=== PATIENT | female | born 1960 | race Two or more races ===

== ENCOUNTER 2022-11-14 11:28 | Inpatient (IN) | payer MEDICAID, OTHER ==
[~2022-11-14] VITALS: Ht 152.4 cm; Wt 100.6 kg
[2022-11-14 12:12] LABS: Basophils # (auto) 0 10 ^3/uL (0-0.2); Basophils % (auto) 0.2 % (0.0-2.0); Eosinophils # (auto) 0 10 ^3/uL (0-0.8); Eosinophils % (auto) 0.3 % (0.0-7.0); Hematocrit 43.5 % (36.0-46.0); Hemoglobin 14.4 g/dL (12.2-16.2); Lymphocytes # (auto) 1.3 10 ^3/uL (0.4-5.4); Lymphocytes % (auto) 15.9 % (10.0-50.0); Mean Corpuscular Hemoglobin 27.6 pg (28.0-32.0); Mean Corpuscular Volume 83.7 fL (80.0-100.0); Monocytes # (auto) 0.3 10 ^3/uL (0-1.3); Monocytes % (auto) 3.2 % (0.0-12.0); Neutrophils # (auto) 6.4 10 ^3/uL (1.6-8.6); Neutrophils % (auto) 80.4 % (37.0-80.0); Nucleated Red Blood Cells % 0.1 %; Red Blood Cells 5.19 10^6/uL (4.0-5.20); Red Cell Distribution Width 14.8 % (11.8-14.3); White Blood Cell 7.9 10^3/uL (4.4-10.8)
[2022-11-14 12:29] LABS: Albumin 3.6 g/dL (3.4-5.0); Calcium 8.3 mg/dL (8.5-10.1); Potassium 3.6 mmol/L (3.5-5.1)
[2022-11-14 12:32] LABS: BUN/Creatinine Ratio 19.6; Bilirubin, Total 0.4 mg/dL (0.2-1.0); Total Protein 7.6 g/dL (6.4-8.2)
[2022-11-14] MEDS ORDERED: DEXTROSE (50%) 50ML SYRG IV PRN (16:45)
[2022-11-14] MEDS ORDERED: ONDANSETRON HCL 4 MG/2 ML VIAL IV PRN (16:45)
[2022-11-14] MEDS ORDERED: REMDESIVIR PER PHARMACY 0 ML IV SCH (16:45)
[2022-11-14] MEDS ORDERED: NITROGLYCERIN 0.4 MG SL TAB SL PRN (16:45)
[2022-11-14] MEDS ORDERED: HYDROcodone-ACET 5/325MG TAB PO PRN (16:45)
[2022-11-14] MEDS ORDERED: ACETAMINOPHEN 500 MG TAB PO PRN (16:45)
[2022-11-14] MEDS ORDERED: MORPHINE SULFATE INJ 2 MG/ml SYRG IV PRN ×2 (16:45)
[2022-11-14] MEDS: ACCU-CHEK COMFORT CURVE STRIP VI SCH ×2 (18:20→23:30)
[2022-11-14] MEDS: DexAMETHasone SOD PHOS 10MG/1ML VIAL INJ IV SCH (18:27)
[2022-11-14] MEDS: InsuLIN REG 1unit/0.01ml Soln (100units/ml) SC SCH ×2 (18:31→23:32)
[2022-11-14] MEDS ORDERED: REMDESIVIR 200 MG in NS 210ml LOADING DOSE ADULT IV ONE (20:00)
[2022-11-14] MEDS: ASCORBIC ACID 500 MG TAB PO SCH (23:21)
[2022-11-15] VITALS (7 sets, daily range): BP systolic 104–154; BP diastolic 48–60
[2022-11-15] MEDS ORDERED: GLIP5TAB12 PO (01:30)
[2022-11-15] MEDS ORDERED: METF-370 PO (01:30)
[2022-11-15] MEDS ORDERED: ERTU5TAB PO (01:30)
[2022-11-15 05:33] LABS: Basophils # (auto) 0 10 ^3/uL (0-0.2); Basophils % (auto) 0.2 % (0.0-2.0); Eosinophils # (auto) 0 10 ^3/uL (0-0.8); Hematocrit 42.3 % (36.0-46.0); Hemoglobin 13.7 g/dL (12.2-16.2); Lymphocytes # (auto) 1.1 10 ^3/uL (0.4-5.4); Lymphocytes % (auto) 18.4 % (10.0-50.0); Mean Corpuscular Hemoglobin 27.2 pg (28.0-32.0); Mean Corpuscular Hgb Conc. 32.5 g/dL (32.0-36.0); Mean Corpuscular Volume 83.8 fL (80.0-100.0); Monocytes # (auto) 0.2 10 ^3/uL (0-1.3); Monocytes % (auto) 4.2 % (0.0-12.0); Neutrophils # (auto) 4.5 10 ^3/uL (1.6-8.6); Neutrophils % (auto) 77.2 % (37.0-80.0); Nucleated Red Blood Cells % 0.1 %; Red Blood Cells 5.04 10^6/uL (4.0-5.20); Red Cell Distribution Width 15.2 % (11.8-14.3); White Blood Cell 5.8 10^3/uL (4.4-10.8)
[2022-11-15 05:37] LABS: Albumin 3.3 g/dL (3.4-5.0); Calcium 8.1 mg/dL (8.5-10.1)
[2022-11-15 05:40] LABS: BUN/Creatinine Ratio 26.1; Bilirubin, Total 0.3 mg/dL (0.2-1.0); Total Protein 6.5 g/dL (6.4-8.2)
[2022-11-15] MEDS: ACCU-CHEK COMFORT CURVE STRIP VI SCH ×4 (06:46→22:30)
[2022-11-15] MEDS: InsuLIN REG 1unit/0.01ml Soln (100units/ml) SC SCH ×4 (06:48→22:32)
[2022-11-15] MEDS: PANTOPRAZOLE 40 MG TAB PO SCH (09:30)
[2022-11-15] MEDS: ASCORBIC ACID 500 MG TAB PO SCH ×2 (09:30→22:34)
[2022-11-15] MEDS: CHOLECALCIFEROL (VITD3) 2,000 UNIT CAP/TAB PO SCH (09:30)
[2022-11-15] MEDS: ZINC SULFATE 220mg CAP or TAB PO SCH (09:31)
[2022-11-15] MEDS: cefTRIAXone 1GM/50ML D5W 50 ML IV SCH (09:32)
[2022-11-15] MEDS: AZITHROMYCIN 500MG/ 250ML 250 ML IV SCH (09:33)
[2022-11-15] MEDS: DexAMETHasone SOD PHOS 10MG/1ML VIAL INJ IV SCH (09:38)
[2022-11-15] MEDS: REMDESIVIR 100mg 100 MG in SODIUM CHL 0.9% 230 ML IV SCH (15:09)
[2022-11-15] MEDS: ALBUTEROL SULF HFA 90MCG INH 200DOSE IN SCH ×2 (15:25→22:29)
[2022-11-15] MEDS: ENOXAPARIN SOD 40 MG/0.4 ML SYRINGE SC SCH (22:34)
[2022-11-15] MEDS ORDERED: ALBUTEROL SULF HFA 90MCG INH 200DOSE IN PRN (22:45)
[2022-11-16 05:00] VITALS: BP 116/62
[2022-11-16] MEDS: ACCU-CHEK COMFORT CURVE STRIP VI SCH ×4 (06:12→22:06)
[2022-11-16] MEDS: InsuLIN REG 1unit/0.01ml Soln (100units/ml) SC SCH ×4 (06:16→22:00)
[2022-11-16 07:34] LABS: Calcium 8.6 mg/dL (8.5-10.1); Potassium 4.9 mmol/L (3.5-5.1)
[2022-11-16 07:37] LABS: Albumin 2.9 g/dL (3.4-5.0); BUN/Creatinine Ratio 35.2
[2022-11-16 07:40] LABS: Bilirubin, Total 0.5 mg/dL (0.2-1.0); Total Protein 6.5 g/dL (6.4-8.2)
[2022-11-16] MEDS: cefTRIAXone 1GM/50ML D5W 50 ML IV SCH (08:45)
[2022-11-16] MEDS: DexAMETHasone SOD PHOS 10MG/1ML VIAL INJ IV SCH (08:45)
[2022-11-16] MEDS: PANTOPRAZOLE 40 MG TAB PO SCH (08:45)
[2022-11-16] MEDS: ASCORBIC ACID 500 MG TAB PO SCH ×2 (08:45→22:05)
[2022-11-16] MEDS: ZINC SULFATE 220mg CAP or TAB PO SCH (08:45)
[2022-11-16] MEDS: ENOXAPARIN SOD 40 MG/0.4 ML SYRINGE SC SCH ×2 (08:45→22:06)
[2022-11-16] MEDS: CHOLECALCIFEROL (VITD3) 2,000 UNIT CAP/TAB PO SCH (08:45)
[2022-11-16 09:00] VITALS: BP 109/51
[2022-11-16] MEDS: AZITHROMYCIN 500MG/ 250ML 250 ML IV SCH (09:39)
[2022-11-16 12:53] VITALS: BP 115/61
[2022-11-16] MEDS: REMDESIVIR 100mg 100 MG in SODIUM CHL 0.9% 230 ML IV SCH (15:54)
[2022-11-16 16:54] VITALS: BP 126/64
[2022-11-16 22:00] VITALS: BP 116/60
[2022-11-17 04:53] VITALS: BP 130/74
[2022-11-17 06:13] LABS: Potassium 3.6 mmol/L (3.5-5.1)
[2022-11-17 06:19] LABS: Bilirubin, Total 0.3 mg/dL (0.2-1.0); Calcium 8.4 mg/dL (8.5-10.1); Total Protein 6.5 g/dL (6.4-8.2)
[2022-11-17] MEDS: ACCU-CHEK COMFORT CURVE STRIP VI SCH ×4 (06:40→21:43)
[2022-11-17] MEDS: InsuLIN REG 1unit/0.01ml Soln (100units/ml) SC SCH ×4 (06:42→21:40)
[2022-11-17] MEDS: ENOXAPARIN SOD 40 MG/0.4 ML SYRINGE SC SCH ×2 (08:02→21:43)
[2022-11-17] MEDS: PANTOPRAZOLE 40 MG TAB PO SCH (08:02)
[2022-11-17] MEDS: cefTRIAXone 1GM/50ML D5W 50 ML IV SCH (08:02)
[2022-11-17] MEDS: ZINC SULFATE 220mg CAP or TAB PO SCH (08:02)
[2022-11-17] MEDS: ASCORBIC ACID 500 MG TAB PO SCH ×2 (08:02→21:42)
[2022-11-17] MEDS: DexAMETHasone SOD PHOS 10MG/1ML VIAL INJ IV SCH (08:02)
[2022-11-17] MEDS: CHOLECALCIFEROL (VITD3) 2,000 UNIT CAP/TAB PO SCH (08:02)
[2022-11-17 09:00] VITALS: BP 119/58
[2022-11-17] MEDS: AZITHROMYCIN 500MG/ 250ML 250 ML IV SCH (09:10)
[2022-11-17 12:59] VITALS: BP 133/64
[2022-11-17] MEDS: REMDESIVIR 100mg 100 MG in SODIUM CHL 0.9% 230 ML IV SCH (14:30)
[2022-11-17 17:09] VITALS: BP 107/66
[2022-11-17] MEDS: metFORMIN HYDROCHLORIDE 500 MG TAB PO SCH (18:00)
[2022-11-17 22:00] VITALS: BP 134/61
[2022-11-18 05:00] VITALS: BP 125/74
[2022-11-18 05:39] LABS: Albumin 3.2 g/dL (3.4-5.0); Calcium 8.5 mg/dL (8.5-10.1)
[2022-11-18 05:43] LABS: BUN/Creatinine Ratio 25.9; Bilirubin, Total 0.3 mg/dL (0.2-1.0); Total Protein 6.3 g/dL (6.4-8.2)
[2022-11-18] MEDS: ACCU-CHEK COMFORT CURVE STRIP VI SCH ×3 (06:38→18:45)
[2022-11-18] MEDS: InsuLIN REG 1unit/0.01ml Soln (100units/ml) SC SCH ×3 (06:40→18:43)
[2022-11-18] MEDS: PANTOPRAZOLE 40 MG TAB PO SCH (08:49)
[2022-11-18] MEDS: metFORMIN HYDROCHLORIDE 500 MG TAB PO SCH ×3 (08:49→18:45)
[2022-11-18] MEDS: ASCORBIC ACID 500 MG TAB PO SCH (08:50)
[2022-11-18] MEDS: CHOLECALCIFEROL (VITD3) 2,000 UNIT CAP/TAB PO SCH (08:50)
[2022-11-18] MEDS: ENOXAPARIN SOD 40 MG/0.4 ML SYRINGE SC SCH (08:50)
[2022-11-18] MEDS: ZINC SULFATE 220mg CAP or TAB PO SCH (08:50)
[2022-11-18] MEDS: cefTRIAXone 1GM/50ML D5W 50 ML IV SCH (08:51)
[2022-11-18 09:14] VITALS: BP 123/63
[2022-11-18] MEDS: AZITHROMYCIN 500MG/ 250ML 250 ML IV SCH (09:35)
[2022-11-18] MEDS ORDERED: DexAMETHasone 4 MG TAB PO SCH (10:00)
[2022-11-18 13:02] VITALS: BP 109/66
[2022-11-18] MEDS ORDERED: SITA50TA PO (15:29)
[2022-11-18] MEDS ORDERED: BENZ100C19 PO (15:29)
[2022-11-18] MEDS ORDERED: ALBU108A5 IN (15:29)
[2022-11-18] MEDS: REMDESIVIR 100mg 100 MG in SODIUM CHL 0.9% 230 ML IV SCH (15:53)
== END 2022-11-18 18:36 | disposition home or self-care (01) | DRG 137 ==
LOC: ER 11:28 → TELE 16:51 → TELE-EAST 20:38
PROVIDERS: ADMIT Nurse Practitioner Acute Care; ATTEND Hospitalist
PROC: XW033E5 Introduction of Remdesivir Anti-infective into Peripheral Vein, Percutaneous Approach, New Technology Group 5 (ICD-10-PCS; principal; 2022-11-14)
DX: U07.1 COVID-19 (principal); J96.01 Acute respiratory failure with hypoxia; J12.82 Pneumonia due to coronavirus disease 2019; E11.65 Type 2 diabetes mellitus with hyperglycemia; E66.01 Morbid (severe) obesity due to excess calories; I10 Essential (primary) hypertension; J45.909 Unspecified asthma, uncomplicated; Z68.41 Body mass index [BMI] 40.0-44.9, adult; Z90.710 Acquired absence of both cervix and uterus; Z83.3 Family history of diabetes mellitus; Z79.4 Long term (current) use of insulin
CPT/HCPCS: 36415; 36600; 71046; 71250; 80053; 82805; 82962; 83036; 85025; 85379; 86141; 87426; 87804; 93005; 99291; G0378; J0696; J1100; J1815

== ENCOUNTER 2022-12-02 09:21 | Inpatient (IN) | payer MEDICAID ==
[~2022-12-02] VITALS: Ht 152.4 cm; Wt 99.3 kg
[~2022-12-02 09:21] MED LIST: ALBU108A5 IN; BENZ100C19 PO; ERTU5TAB PO; GLIP5TAB12 PO; METF-370 PO; SITA50TA PO
[2022-12-02 10:23] LABS: Urine Bacteria NONE SEEN /hpf (None Seen); Urine Blood Negative /uL (Negative); Urine Specific Gravity 1.016 (1.001-1.035); Urine WBC 2 /hpf (0 - 5)
[2022-12-02 10:33] LABS: Basophils # (auto) 0 10 ^3/uL (0-0.2); Basophils % (auto) 0.5 % (0.0-2.0); Eosinophils # (auto) 0.2 10 ^3/uL (0-0.8); Eosinophils % (auto) 3.2 % (0.0-7.0); Hemoglobin 14.4 g/dL (12.2-16.2); Lymphocytes # (auto) 1.2 10 ^3/uL (0.4-5.4); Lymphocytes % (auto) 19.1 % (10.0-50.0); Mean Corpuscular Hgb Conc. 33.5 g/dL (32.0-36.0); Mean Corpuscular Volume 83.6 fL (80.0-100.0); Monocytes # (auto) 0.3 10 ^3/uL (0-1.3); Monocytes % (auto) 5.2 % (0.0-12.0); Neutrophils # (auto) 4.4 10 ^3/uL (1.6-8.6); Nucleated Red Blood Cells % 0.1 %; Red Blood Cells 5.15 10^6/uL (4.0-5.20); Red Cell Distribution Width 14.8 % (11.8-14.3); White Blood Cell 6.1 10^3/uL (4.4-10.8)
[2022-12-02] MEDS ORDERED: AZITHROMYCIN 500MG/ 250ML 250 ML IV ONE (12:45)
[2022-12-02] MEDS ORDERED: cefTRIAXone 1GM/50ML D5W 50 ML IV ONE (12:45)
[2022-12-02] MEDS ORDERED: MORPHINE SULFATE INJ 2 MG/ml SYRG IV PRN (14:00)
[2022-12-02] MEDS ORDERED: NITROGLYCERIN 0.4 MG SL TAB SL PRN (14:00)
[2022-12-02] MEDS ORDERED: ALBUTEROL MEDNEB 2.5 mg/3ml NEB NEB PRN (14:15)
[2022-12-02] MEDS ORDERED: IPRATROPIUM BROM 0.5 MG/2.5ML INH SOL NEB PRN (14:15)
[2022-12-02] MEDS ORDERED: DEXTROSE (50%) 50ML SYRG IV PRN (14:15)
[2022-12-02] MEDS ORDERED: LOS25T PO (14:18)
[2022-12-02 14:27] VITALS: BP 146/69
[2022-12-02 15:17] LABS: Albumin 3.9 g/dL (3.4-5.0); Calcium 8.8 mg/dL (8.5-10.1); Potassium 3.6 mmol/L (3.5-5.1)
[2022-12-02 15:21] LABS: BUN/Creatinine Ratio 10.6; Bilirubin, Total 0.4 mg/dL (0.2-1.0); Total Protein 7.3 g/dL (6.4-8.2)
[2022-12-02 15:26] LABS: Cholesterol 104 mg/dL (< 200); HDL Cholesterol 45 mg/dL (40-59); LDL Cholesterol 55 mg/dL (< 100); Triglycerides 93 mg/dL (< 150)
[2022-12-02] MEDS: InsuLIN REG 1unit/0.01ml Soln (100units/ml) SC SCH (17:00)
[2022-12-02] MEDS: ACCU-CHEK COMFORT CURVE STRIP VI SCH (17:09)
[2022-12-02] MEDS: ALBUTEROL MEDNEB 2.5 mg/3ml NEB NEB SCH (20:05)
[2022-12-02] MEDS: IPRATROPIUM BROM 0.5 MG/2.5ML INH SOL NEB SCH (20:05)
[2022-12-03] MEDS: ACCU-CHEK COMFORT CURVE STRIP VI SCH ×5 (03:10→21:46)
[2022-12-03] MEDS: InsuLIN REG 1unit/0.01ml Soln (100units/ml) SC SCH ×5 (03:15→21:48)
[2022-12-03] MEDS: ALBUTEROL MEDNEB 2.5 mg/3ml NEB NEB SCH ×3 (05:45→19:02)
[2022-12-03] MEDS: IPRATROPIUM BROM 0.5 MG/2.5ML INH SOL NEB SCH ×3 (05:45→19:02)
[2022-12-03 06:54] LABS: Basophils # (auto) 0 10 ^3/uL (0-0.2); Basophils % (auto) 0.7 % (0.0-2.0); Eosinophils # (auto) 0.3 10 ^3/uL (0-0.8); Eosinophils % (auto) 4.9 % (0.0-7.0); Hematocrit 41.4 % (36.0-46.0); Hemoglobin 14.2 g/dL (12.2-16.2); Lymphocytes # (auto) 1.6 10 ^3/uL (0.4-5.4); Lymphocytes % (auto) 25.3 % (10.0-50.0); Mean Corpuscular Hemoglobin 28.7 pg (28.0-32.0); Mean Corpuscular Hgb Conc. 34.3 g/dL (32.0-36.0); Mean Corpuscular Volume 83.6 fL (80.0-100.0); Monocytes # (auto) 0.4 10 ^3/uL (0-1.3); Monocytes % (auto) 6.5 % (0.0-12.0); Neutrophils # (auto) 3.9 10 ^3/uL (1.6-8.6); Neutrophils % (auto) 62.6 % (37.0-80.0); Nucleated Red Blood Cells % 0.1 %; Red Blood Cells 4.95 10^6/uL (4.0-5.20); White Blood Cell 6.2 10^3/uL (4.4-10.8)
[2022-12-03 07:11] LABS: Potassium 3.6 mmol/L (3.5-5.1)
[2022-12-03 07:17] LABS: Albumin 3.9 g/dL (3.4-5.0); BUN/Creatinine Ratio 18.6; Bilirubin, Total 0.4 mg/dL (0.2-1.0); Total Protein 7.5 g/dL (6.4-8.2)
[2022-12-03] MEDS: cefTRIAXone 1GM/50ML D5W 50 ML IV SCH (09:13)
[2022-12-03] MEDS: ENOXAPARIN SOD 40 MG/0.4 ML SYRINGE SC SCH ×2 (09:14→21:48)
[2022-12-03] MEDS: AZITHROMYCIN 500MG/ 250ML 250 ML IV SCH (09:14)
[2022-12-03] MEDS ORDERED: ERTU5TAB PO (15:41)
[2022-12-03 17:00] VITALS: BP 125/67
[2022-12-03 22:00] VITALS: BP 115/49
[2022-12-04 05:00] VITALS: BP 122/65
[2022-12-04 06:23] LABS: Basophils # (auto) 0 10 ^3/uL (0-0.2); Basophils % (auto) 0.6 % (0.0-2.0); Eosinophils # (auto) 0.4 10 ^3/uL (0-0.8); Eosinophils % (auto) 8.8 % (0.0-7.0); Hematocrit 39.6 % (36.0-46.0); Hemoglobin 13.3 g/dL (12.2-16.2); Lymphocytes # (auto) 1.7 10 ^3/uL (0.4-5.4); Lymphocytes % (auto) 38.6 % (10.0-50.0); Mean Corpuscular Hemoglobin 28.1 pg (28.0-32.0); Mean Corpuscular Hgb Conc. 33.5 g/dL (32.0-36.0); Mean Corpuscular Volume 83.9 fL (80.0-100.0); Monocytes # (auto) 0.4 10 ^3/uL (0-1.3); Monocytes % (auto) 8.2 % (0.0-12.0); Neutrophils # (auto) 1.9 10 ^3/uL (1.6-8.6); Neutrophils % (auto) 43.8 % (37.0-80.0); Nucleated Red Blood Cells % 0.1 %; Red Blood Cells 4.72 10^6/uL (4.0-5.20); Red Cell Distribution Width 14.8 % (11.8-14.3); White Blood Cell 4.3 10^3/uL (4.4-10.8)
[2022-12-04 06:31] LABS: Calcium 8.8 mg/dL (8.5-10.1)
[2022-12-04 06:34] LABS: BUN/Creatinine Ratio 20.5
[2022-12-04] MEDS: ACCU-CHEK COMFORT CURVE STRIP VI SCH ×3 (06:37→17:00)
[2022-12-04] MEDS: InsuLIN REG 1unit/0.01ml Soln (100units/ml) SC SCH ×3 (06:39→17:00)
[2022-12-04] MEDS: IPRATROPIUM BROM 0.5 MG/2.5ML INH SOL NEB SCH (07:01)
[2022-12-04] MEDS: ALBUTEROL MEDNEB 2.5 mg/3ml NEB NEB SCH (07:01)
[2022-12-04 08:00] VITALS: BP 106/58
[2022-12-04] MEDS: cefTRIAXone 1GM/50ML D5W 50 ML IV SCH (09:00)
[2022-12-04] MEDS: ENOXAPARIN SOD 40 MG/0.4 ML SYRINGE SC SCH (10:00)
[2022-12-04] MEDS: AZITHROMYCIN 500MG/ 250ML 250 ML IV SCH (10:00)
[2022-12-04] MEDS ORDERED: DOXY-332 PO (11:50)
[2022-12-04] MEDS ORDERED: ALBUAER3 IN (11:50)
[2022-12-04] MEDS ORDERED: GUAI100S6 PO ×2 (11:50→11:51)
[2022-12-04 12:00] VITALS: BP 121/60
[2022-12-04] MEDS: guaiFENesin-DM 100/10mg/5ml SYR PO PRN ×2 (12:55→17:36)
[2022-12-04 16:00] VITALS: BP 106/46
[2022-12-04 16:37] VITALS: BP 106/46
== END 2022-12-04 17:30 | disposition home or self-care (01) | DRG 139 ==
LOC: ER 09:21 → OVERFLOW 14:08 → EAST 12-03 14:20
PROVIDERS: ADMIT Registered Nurse; ATTEND Nurse Practitioner Acute Care
DX: J15.9 Unspecified bacterial pneumonia (principal); J96.01 Acute respiratory failure with hypoxia; E66.01 Morbid (severe) obesity due to excess calories; J45.901 Unspecified asthma with (acute) exacerbation; Z20.822 Contact with and (suspected) exposure to COVID-19; I10 Essential (primary) hypertension; E11.9 Type 2 diabetes mellitus without complications; Z68.41 Body mass index [BMI] 40.0-44.9, adult; Z83.3 Family history of diabetes mellitus
CPT/HCPCS: 36415; 36600; 71045; 80048; 80053; 80061; 81001; 82805; 82962; 84443; 84484; 85025; 85379; 87040; 87426; 87804; 93005; 94640; 96365; 96368; G0378; J0696; J1815

== ENCOUNTER 2023-10-27 18:17 | Inpatient (IN) | payer OTHER, MEDICAID ==
[~2023-10-27] VITALS: Ht 152.4 cm; Wt 99.6 kg
[~2023-10-27 18:17] MED LIST changes: +ALBUAER3 IN; +DOXY-448 PO; +GUAI100S6 PO; +LOS25T PO
[2023-10-27] MEDS ORDERED: ALBUTEROL SULF 2.5 MG/0.5ML(0.5%) NEB SOLN NEB ONE (19:30)
[2023-10-27 20:06] LABS: Basophils # (auto) 0 10 ^3/uL (0-0.2); Basophils % (auto) 0.3 % (0.0-2.0); Eosinophils # (auto) 0.1 10 ^3/uL (0-0.8); Eosinophils % (auto) 1.2 % (0.0-7.0); Hematocrit 42.4 % (36.0-46.0); Lymphocytes # (auto) 1.4 10 ^3/uL (0.4-5.4); Lymphocytes % (auto) 10.9 % (10.0-50.0); Mean Corpuscular Hemoglobin 27.8 pg (28.0-32.0); Mean Corpuscular Volume 84.2 fL (80.0-100.0); Monocytes # (auto) 0.9 10 ^3/uL (0-1.3); Monocytes % (auto) 6.8 % (0.0-12.0); Neutrophils # (auto) 10.2 10 ^3/uL (1.6-8.6); Neutrophils % (auto) 80.8 % (37.0-80.0); Red Blood Cells 5.03 10^6/uL (4.0-5.20); Red Cell Distribution Width 14.8 % (11.8-14.3); White Blood Cell 12.6 10^3/uL (4.4-10.8)
[2023-10-27 20:16] LABS: Chloride 105 mmol/L (98-107); Potassium 3.4 mmol/L (3.5-5.1); Sodium 138 mmol/L (136-145)
[2023-10-27 20:17] LABS: Anion Gap 11 (5-15); Calcium 9.4 mg/dL (8.5-10.1); Carbon Dioxide 22 mmol/L (20-30)
[2023-10-27 20:22] LABS: BUN/Creatinine Ratio 8.2 (10.0-20.0); Blood Urea Nitrogen 6 mg/dL (9-23); Glucose 252 mg/dL (74-106)
[2023-10-27] MEDS ORDERED: AZITHROMYCIN 500MG/ 250ML 250 ML IV ONE (23:15)
[2023-10-27] MEDS ORDERED: ONDANSETRON HCL 4 MG/2 ML VIAL IV PRN (23:15)
[2023-10-27] MEDS ORDERED: DOCUSATE SOD 100 MG CAP PO PRN (23:15)
[2023-10-27] MEDS ORDERED: ACETAMINOPHEN 325 MG TAB PO PRN (23:15)
[2023-10-27] MEDS ORDERED: cefTRIAXone 1GM/50ML D5W 50 ML IV ONE (23:15)
[2023-10-27] MEDS ORDERED: DEXTROSE (50%) 50ML SYRG IV PRN (23:15)
[2023-10-27 23:24] VITALS: BP 150/74; PULSE 100; RESP 20; TEMP 98.1; O2SAT 98
[2023-10-27] MEDS ORDERED: hydrALAZINE HCL 20 MG/ML VL IV PRN (23:30)
[2023-10-27] MEDS ORDERED: POTASSIUM CHL 20 Meq TABLET PO ONE (23:30)
[2023-10-28] VITALS (11 sets, daily range): BP systolic 104–116; BP diastolic 51–60; PULSE 80–95; RESP 14–18; TEMP 98.2–98.5; O2SAT 90–100
[2023-10-28 03:04] LABS: Urine Bacteria FEW /hpf (None Seen); Urine Blood Negative /uL (Negative); Urine Clarity Clear (Clear); Urine Color Yellow (Yellow); Urine Protein, UAD TRACE (Negative); Urine Urobilinogen Normal (Negative); Urine WBC 3 /hpf (0 - 5)
[2023-10-28 03:14] LABS: COVID19 ANTIGEN SOFIA FIA NEGATIVE (NEGATIVE)
[2023-10-28 03:59] LABS: Urine Specific Gravity > 1.050 (1.001-1.035)
[2023-10-28 04:35] LABS: Basophils # (auto) 0 10 ^3/uL (0-0.2); Basophils % (auto) 0.3 % (0.0-2.0); Eosinophils # (auto) 0.2 10 ^3/uL (0-0.8); Eosinophils % (auto) 1.7 % (0.0-7.0); Hematocrit 40.4 % (36.0-46.0); Hemoglobin 13.2 g/dL (12.2-16.2); Lymphocytes # (auto) 1.6 10 ^3/uL (0.4-5.4); Lymphocytes % (auto) 14.3 % (10.0-50.0); Mean Corpuscular Hemoglobin 27.1 pg (28.0-32.0); Mean Corpuscular Hgb Conc. 32.6 g/dL (32.0-36.0); Mean Corpuscular Volume 83.2 fL (80.0-100.0); Monocytes # (auto) 0.9 10 ^3/uL (0-1.3); Monocytes % (auto) 7.9 % (0.0-12.0); Neutrophils # (auto) 8.3 10 ^3/uL (1.6-8.6); Neutrophils % (auto) 75.8 % (37.0-80.0); Red Blood Cells 4.86 10^6/uL (4.0-5.20); Red Cell Distribution Width 14.7 % (11.8-14.3); White Blood Cell 10.9 10^3/uL (4.4-10.8)
[2023-10-28 04:54] LABS: Alanine Aminotransferase 18 U/L (7-40); Albumin 4.1 g/dL (3.2-4.8); Alkaline Phosphatase 63 U/L (46-116); Anion Gap 9 (5-15); Aspartate Aminotransferase 10 U/L (13-40); Bilirubin, Total 0.5 mg/dL (0.2-1.0); Blood Urea Nitrogen 6 mg/dL (9-23); Calcium 8.9 mg/dL (8.5-10.1); Carbon Dioxide 23 mmol/L (20-30); Chloride 106 mmol/L (98-107); Cholesterol 78 mg/dL (< 200); Glucose 171 mg/dL (74-106); HDL Cholesterol 30 mg/dL (40-59); LDL Cholesterol 38 mg/dL (< 100); Potassium 3.5 mmol/L (3.5-5.1); Sodium 138 mmol/L (136-145); Total Protein 6.6 g/dL (5.7-8.2); Triglycerides 64 mg/dL (< 150)
[2023-10-28] MEDS: IPRATROPIUM BROM 0.5 MG/2.5ML INH SOL NEB SCH ×5 (06:00→18:52)
[2023-10-28] MEDS: ALBUTEROL SULF 2.5 MG/0.5ML(0.5%) NEB SOLN NEB SCH ×5 (06:00→18:52)
[2023-10-28] MEDS: ACCU-CHEK COMFORT CURVE STRIP VI SCH ×4 (06:43→21:53)
[2023-10-28] MEDS: InsuLIN REG 1unit/0.01ml Soln (100units/ml) SC SCH ×4 (06:45→21:53)
[2023-10-28] MEDS: LOSARTAN POTASSIUM 25 MG TAB PO SCH (09:17)
[2023-10-28] MEDS: cefTRIAXone 1GM/50ML D5W 50 ML IV SCH (09:17)
[2023-10-28] MEDS: ENOXAPARIN SOD 40 MG/0.4 ML SYRINGE SC SCH (09:22)
[2023-10-28] MEDS ORDERED: AZITHROMYCIN 500MG/ 250ML 250 ML IV SCH (10:00)
[2023-10-28] MEDS ORDERED: PANTOPRAZOLE 40 MG TAB PO SCH (10:00)
[2023-10-28 12:07] LABS: Rapid Influenza A Negative (Negative); Rapid Influenza B Negative (Negative)
[2023-10-28] MEDS: HYDROcodone-ACET 5/325MG TAB PO PRN (20:18)
[2023-10-29] VITALS (14 sets, daily range): BP systolic 99–129; BP diastolic 55–84; PULSE 76–95; RESP 16–20; TEMP 97.9–98.8; O2SAT 90–99
[2023-10-29 06:19] LABS: Basophils # (auto) 0 10 ^3/uL (0-0.2); Basophils % (auto) 0.4 % (0.0-2.0); Eosinophils # (auto) 0.5 10 ^3/uL (0-0.8); Eosinophils % (auto) 4.1 % (0.0-7.0); Hematocrit 42.3 % (36.0-46.0); Hemoglobin 13.7 g/dL (12.2-16.2); Lymphocytes # (auto) 2.2 10 ^3/uL (0.4-5.4); Lymphocytes % (auto) 19.5 % (10.0-50.0); Mean Corpuscular Hemoglobin 27.2 pg (28.0-32.0); Mean Corpuscular Hgb Conc. 32.3 g/dL (32.0-36.0); Mean Corpuscular Volume 84.3 fL (80.0-100.0); Monocytes # (auto) 1.2 10 ^3/uL (0-1.3); Monocytes % (auto) 10.2 % (0.0-12.0); Neutrophils # (auto) 7.4 10 ^3/uL (1.6-8.6); Neutrophils % (auto) 65.8 % (37.0-80.0); Nucleated Red Blood Cells % 0.1 %; Red Blood Cells 5.02 10^6/uL (4.0-5.20); Red Cell Distribution Width 15.1 % (11.8-14.3); White Blood Cell 11.3 10^3/uL (4.4-10.8)
[2023-10-29] MEDS: ACCU-CHEK COMFORT CURVE STRIP VI SCH ×4 (06:28→21:51)
[2023-10-29] MEDS: InsuLIN REG 1unit/0.01ml Soln (100units/ml) SC SCH ×4 (06:28→21:47)
[2023-10-29 06:45] LABS: Alanine Aminotransferase 14 U/L (7-40); Albumin 4.2 g/dL (3.2-4.8); Alkaline Phosphatase 75 U/L (46-116); Anion Gap 9 (5-15); Aspartate Aminotransferase 13 U/L (13-40); BUN/Creatinine Ratio 14.8 (10.0-20.0); Bilirubin, Total 0.4 mg/dL (0.2-1.0); Blood Urea Nitrogen 9 mg/dL (9-23); Calcium 9.3 mg/dL (8.5-10.1); Carbon Dioxide 24 mmol/L (20-30); Chloride 104 mmol/L (98-107); Glucose 225 mg/dL (74-106); Potassium 4.1 mmol/L (3.5-5.1); Sodium 137 mmol/L (136-145)
[2023-10-29] MEDS: ALBUTEROL SULF 2.5 MG/0.5ML(0.5%) NEB SOLN NEB SCH ×5 (06:53→22:00)
[2023-10-29] MEDS: IPRATROPIUM BROM 0.5 MG/2.5ML INH SOL NEB SCH ×5 (06:53→22:00)
[2023-10-29] MEDS: cefTRIAXone 1GM/50ML D5W 50 ML IV SCH (09:02)
[2023-10-29] MEDS: LOSARTAN POTASSIUM 25 MG TAB PO SCH (09:02)
[2023-10-29] MEDS: ENOXAPARIN SOD 40 MG/0.4 ML SYRINGE SC SCH (09:03)
[2023-10-29] MEDS: AZITHROMYCIN 250 MG TAB PO SCH (09:03)
[2023-10-29] MEDS: HYDROcodone-ACET 5/325MG TAB PO PRN (09:23)
[2023-10-29] MEDS: guaiFENesin-DM 100/10mg/5ml SYR PO PRN ×2 (17:43→21:49)
[2023-10-30] VITALS (10 sets, daily range): BP systolic 120–127; BP diastolic 54–64; PULSE 72–81; RESP 16–20; TEMP 98.1–98.3; O2SAT 91–99
[2023-10-30] MEDS: guaiFENesin-DM 100/10mg/5ml SYR PO PRN (05:52)
[2023-10-30 06:22] LABS: Basophils # (auto) 0.1 10 ^3/uL (0-0.2); Basophils % (auto) 0.6 % (0.0-2.0); Eosinophils # (auto) 0.5 10 ^3/uL (0-0.8); Eosinophils % (auto) 5.2 % (0.0-7.0); Hematocrit 42.2 % (36.0-46.0); Lymphocytes # (auto) 2.3 10 ^3/uL (0.4-5.4); Lymphocytes % (auto) 22.6 % (10.0-50.0); Mean Corpuscular Hemoglobin 27.8 pg (28.0-32.0); Mean Corpuscular Volume 84.1 fL (80.0-100.0); Monocytes # (auto) 1.5 10 ^3/uL (0-1.3); Monocytes % (auto) 14.8 % (0.0-12.0); Neutrophils # (auto) 5.8 10 ^3/uL (1.6-8.6); Neutrophils % (auto) 56.8 % (37.0-80.0); Nucleated Red Blood Cells % 0.1 %; Red Blood Cells 5.02 10^6/uL (4.0-5.20); Red Cell Distribution Width 14.5 % (11.8-14.3); White Blood Cell 10.3 10^3/uL (4.4-10.8)
[2023-10-30] MEDS: ALBUTEROL SULF 2.5 MG/0.5ML(0.5%) NEB SOLN NEB SCH ×3 (06:30→14:56)
[2023-10-30] MEDS: IPRATROPIUM BROM 0.5 MG/2.5ML INH SOL NEB SCH ×3 (06:30→14:56)
[2023-10-30 06:34] LABS: Alanine Aminotransferase 20 U/L (7-40); Albumin 4.2 g/dL (3.2-4.8); Alkaline Phosphatase 72 U/L (46-116); Anion Gap 10 (5-15); Aspartate Aminotransferase 28 U/L (13-40); BUN/Creatinine Ratio 10.7 (10.0-20.0); Blood Urea Nitrogen 6 mg/dL (9-23); Calcium 9.2 mg/dL (8.5-10.1); Carbon Dioxide 24 mmol/L (20-30); Chloride 105 mmol/L (98-107); Glucose 229 mg/dL (74-106); Sodium 139 mmol/L (136-145)
[2023-10-30 06:35] LABS: Bilirubin, Total 0.4 mg/dL (0.2-1.0); Total Protein 7.1 g/dL (5.7-8.2)
[2023-10-30 06:43] LABS: CRP High Sensitivity 4.99 mg/dL (<1.0)
[2023-10-30] MEDS: ACCU-CHEK COMFORT CURVE STRIP VI SCH ×2 (07:08→11:15)
[2023-10-30] MEDS: InsuLIN REG 1unit/0.01ml Soln (100units/ml) SC SCH ×2 (07:11→11:21)
[2023-10-30] MEDS ORDERED: AZIT-81 PO (10:19)
[2023-10-30] MEDS ORDERED: PRED10TA PO (10:19)
[2023-10-30] MEDS: AZITHROMYCIN 250 MG TAB PO SCH (11:14)
[2023-10-30] MEDS: LOSARTAN POTASSIUM 25 MG TAB PO SCH (11:14)
[2023-10-30] MEDS: ENOXAPARIN SOD 40 MG/0.4 ML SYRINGE SC SCH (11:15)
[2023-10-30] MEDS: HYDROcodone-ACET 5/325MG TAB PO PRN (11:16)
[2023-10-30] MEDS: cefTRIAXone 1GM/50ML D5W 50 ML IV SCH (11:22)
== END 2023-10-30 15:14 | disposition home or self-care (01) | DRG 177 ==
LOC: ER 18:17 → OVERFLOW 23:16 → EAST 10-28 09:03
PROVIDERS: ADMIT Internal Medicine; ATTEND Internal Medicine
DX: J15.69 Pneumonia due to other Gram-negative bacteria (principal); J96.01 Acute respiratory failure with hypoxia; J45.901 Unspecified asthma with (acute) exacerbation; Z68.41 Body mass index [BMI] 40.0-44.9, adult; J15.9 Unspecified bacterial pneumonia; I10 Essential (primary) hypertension; E66.01 Morbid (severe) obesity due to excess calories; E11.9 Type 2 diabetes mellitus without complications; R79.89 Other specified abnormal findings of blood chemistry; K21.9 Gastro-esophageal reflux disease without esophagitis; Z20.822 Contact with and (suspected) exposure to COVID-19; Z90.49 Acquired absence of other specified parts of digestive tract
CPT/HCPCS: 36415; 71045; 71275; 80048; 80053; 80061; 81001; 82962; 83036; 83880; 84443; 84484; 85025; 85379; 86141; 87040; 87426; 87804; 93971; 94640; G0378; J1815

== ENCOUNTER 2025-05-23 20:50 | Emergency (ER) | payer OTHER, MEDICAID ==
[~2025-05-23] VITALS: Ht 152.4 cm; Wt 97.0 kg
[~2025-05-23 20:50] MED LIST changes: +AZIT-185 PO; -DOXY-448 PO; -GLIP5TAB12 PO; +GLIP5TAB21 PO; +PRED10TA PO
[2025-05-23 21:34] LABS: Urine Protein, UAD Negative (Negative)
[2025-05-23 21:50] LABS: Hematocrit 46.9 % (36.0-46.0); Hemoglobin 15.8 g/dL (12.2-16.2); Mean Corpuscular Hemoglobin 28.2 pg (28.0-32.0); Mean Corpuscular Volume 83.7 fL (80.0-100.0); Nucleated Red Blood Cells % 0.1 %
[2025-05-23 21:57] LABS: Chloride 104 mmol/L (98-107); Potassium 4.4 mmol/L (3.5-5.1); Sodium 142 mmol/L (136-145)
[2025-05-23 21:58] LABS: Anion Gap 12 (5-15); Calcium 9.8 mg/dL (8.7-10.4); Carbon Dioxide 26 mmol/L (20-31)
[2025-05-23 22:03] LABS: BUN/Creatinine Ratio 20.3 (10.0-20.0); Blood Urea Nitrogen 13 mg/dL (9-23)
[2025-05-23 22:05] LABS: Glucose 160 mg/dL (74-106)
--- NOTE | 2025-05-23 22:06 | DVH ---
INDICATION: LOWER LUMBAR BACK PAIN COMPARISON: None TECHNIQUE: 2 views , of the lumbar spine were obtained. FINDINGS: The lumbar vertebral alignment is normal. Mild degenerative changes throughout the lumbar spine No acute fracture, vertebral compression deformity or aggressive osseous lesions. The paravertebral soft tissues are grossly unremarkable. IMPRESSION: 1. No acute fracture. 2. Mild degenerative changes throughout the lumbar spine.
[2025-05-23] MEDS ORDERED: ZOFR4T PO (22:45)
[2025-05-23] MEDS: ONDANSETRON ODT 4 MG TAB PO ONE (22:45)
[2025-05-23] MEDS ORDERED: BACDST PO (22:45)
[2025-05-23] MEDS: ACETAMINOPHEN 325 MG TAB PO ONE (22:45)
[2025-05-23] MEDS ORDERED: ACET500T58 PO (22:45)
--- NOTE | 2025-05-23 22:45 | ED.PDOC ---
Back pain HPI HPI Comments 65-year-old female presents to ER with complaints of back pain x4 days. Patient reports that she started experiencing lower lumbar back pain x4 days with associated intermittent nausea and two episodes of vomiting x1 day. Reports that she has had similar symptoms in the past related to a "kidney infection". She rates her current lower lumbar back pain at 5/10 and denies use of medications for current symptoms. Patient presents to ER ambulatory on arrival, with steady gait, in no distress. Denies fever, body aches, chills, shortness of breath, chest pain, flank pain, injury, changes in urination, changes in BM or any further symptoms/complaints Chief Complaint: Back Pain Time Seen by MD: 21:05 Primary Care Provider: SAVITA Reviewed Notes: Nurses Notes, Medications, Allergies Allergies: Coded Allergies: NO KNOWN ALLERGIES (Unverified , 11/14/22) Home Meds Active Scripts Ondansetron Odt 4MG Tab (ZOFRAN PO) 4 Mg Tb, 4 MG PO Q8HPRN, #14 TAB 0 Refills ODT TAB-DISSOLVE IN MOUTH, THEN SWALLOW Prov:KARMEN CHOWDARY 05/23/25 Sulfamethoxazole W/Trimethopri (Bactrim Ds Tablet) 1 Tab Tb, 1 TAB PO BID for 7 Days, #14 TAB 0 Refills Prov:KARMEN CHOWDARY 05/23/25 Acetaminophen (Acetaminophen) 500 Mg Tab, 500 MG PO Q4HPRN, #30 TAB 0 Refills Prov:KARMEN CHOWDARY 05/23/25 Prednisone (Prednisone) 10 Mg Tab, 10 MG PO DAILY, #20 MG take 2 tab daily for 5 days , then one tab until finish Prov:REMBERTO BENZ MD 10/30/23 Azithromycin (ZITHROMAX TABLET) 250 Mg Tb, 250 MG PO DAILY, #6 TAB Take 2 tabs the first day, then 1 tab daily until finish Prov:REMBERTO BENZ MD 10/30/23 Albuterol Sulfate (VENTOLIN MDI) 90 Mcg Ih, 90 MCG IN Q4HP PRN, #1 INH 2 puffs prn dyspnea Prov:PADMINI VILLALOBOS MACHINE OR MACHINERY MECHANIC 12/04/22 Albuterol Sulfate (Albuterol Sulfate Hfa) 108 Mcg/Act Aer, 108 MCG IN Q4HPRN PRN, #1 AER Prov:MIGDALIA HAYES MD 11/18/22 Benzonatate (Tessalon Perles) 100 Mg Cap, 1 CAP PO TID, #30 CAP Prov:MIGDALIA HAYES MD 11/18/22 Sitagliptin Phosphate (Januvia) 50 Mg Tab, 1 TAB PO DAILY, #90 TAB 1 Refill Prov:MIGDALIA HAYES MD 11/18/22 Reported Medications Guaifenesin-Codeine (Robitussin/Codeine) 10 Ml So, 5 ML PO Q6HR, #240 ML 12/04/22 Guaifenesin-Codeine (Robitussin/Codeine) 10 Ml So, 5-10 ML PO Q4HR for 7 Days, #240 ML 12/04/22 Guaifenesin-Codeine (Robitussin/Codeine) 10 Ml So, 5-10 ML PO Q4HR, #240 ML 12/04/22 Ertugliflozin l-Pyroglutamic A (Steglatro) 5 Mg Tab, 5 MG PO DAILY, TAB 12/03/22 Losartan Potassium (Losartan Potassium) 25 Mg Tab, 1 TAB PO DAILY 12/02/22 Ertugliflozin l-Pyroglutamic A (Steglatro) 5 Mg Tab, 5 MG PO HS, TAB 11/15/22 Glipizide (Glipizide) 5 Mg Tab, 5 MG PO TID for 30 Days, MG 11/15/22 Metformin Hydrochloride (Metformin Hcl) 500 Mg Tab, 1000 MG PO BID for 30 Days, MG 11/15/22 Mode of Arrival: Ambulatory Past Medical History PAST MEDICAL HISTORY: Asthma, DM, HTN, UTI'S Surgical History: Cholecystectomy 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 Family History Family History: Unknown Social History Smoker: Non-Smoker Alcohol: Denies ETOH Use Drugs: Denies Drug Use Lives In: Home Constitutional: denies: chills, diaphoresis, fatigue, fever, malaise, sweats, weakness, others EENTM: denies: blurred vision, double vision, ear bleeding, ear discharge, ear drainage, ear pain, ear ringing, eye pain, eye redness, hearing loss, mouth pain, mouth swelling, nasal discharge, nose bleeding, nose congestion, nose pain, photophobia, tearing, throat pain, throat swelling, voice changes, others Respiratory: denies: cough, hemoptysis, orthopnea, SOB at rest, shortness of breath, SOB with excertion, stridor, wheezing, others Cardiovascular: denies: chest pain, dizzy spells, diaphoresis, Dyspnea on exertion, edema, irregular heart beat, left arm pain, lightheadedness, palpitati ons, PND, syncope, others Gastrointestinal: reports: others (As stated in HPI) Genitourinary: denies: abnormal vagina bleeding, burning, dyspareunia, dysuria, flank pain, frequency, hematuria, incontinence, pain, , vagina discharge, urgency, others Neurological: denies: dizziness, fainting, headache, left sided numbness, left sided weakness, numbness, paresthesia, pre-existing deficit, right sided numbness, right sided weakness, seizure, speech problems, tingling, tremors, weakness, others Musculoskeletal: reports: others (As stated in HPI) Integumetry: denies: bruises, change in color, change in hair/nails, dryness, laceration, lesions, lumps, rash, wounds, others Allergic/Immunocompromised: denies: Difficulty Healing, Frequent Infections, Hives, Itching, others Hematologic/Lymphatic: denies: anemia, blood clots, easy bleeding, easy bruising, swollen glands, others Endocrine: denies: excessive hunger, excessive sweating, excessive thirst, excessive urination, flushing, intolerance to cold, intolerance to heat, unexplained weight gain, unexplained weight loss, others Psychiatric: denies: anxiety, bipolar disorder, depression, hopeless, panic disorder, schizophrenia, sleepless, suicidal, others Physical Exam General Appearance: No Apparent Distress, Obese HEENT: PERRL/EOMI Neck: Full Range of Motion, Non-Tender, Normal Respiratory: Chest Non-Tender, Lungs Clear, No Accessory Muscle Use, No Respiratory Distress, Normal Breath Sounds Cardiovascular: No Murmur, No Gallop, Regular Rate/Rhythm Breast Exam: Deferred Gastrointestinal: Non Tender, No Pulsatile Mass, Soft Genitalia: Deferred Pelvic: Deferred Rectal: Deferred Extremities: Normal capillary refill, Normal range of motion Musculoskeletal : Extremity Location: Back (Slight TTP centralized to lower lumbar spine. No TTP to bilateral flanks or CVA tenderness noted bilaterally) Neurologic: Alert, regulatory affairs specialist II-XII nml as Tested, No Motor Deficits, Normal Affect, Normal Mood, No Sensory Deficits Cerebellar Function: Normal Reflexes: Normal Skin: Dry, Normal Color, Warm Lymphatic: No Adenopathy Was a procedure done? Was a procedure done?: No Sedation Sedation?: No Back Pain Differential Dx Differential Diagnosis: AAA, Fracture, Strain, Urinary Obstruction, Urolithiasis X-Ray, Labs, Meds, VS Vital Signs Date Time Temp Pulse Resp B/P (MAP) Pulse Ox O2 Delivery O2 Flow Rate FiO2 05/23/25 20:51 98.6 89 20 146/70 94 98.6 Lab Test 05/23/25 21:18 05/23/25 21:00 Range/Units White Blood Count 9.8 4.4-10.8 10^3/uL Red Blood Count 5.60 H 4.0-5.20 10^6/uL Hemoglobin 15.8 12.2-16.2 g/dL Hematocrit 46.9 H 36.0-46.0 % Mean Corpuscular Volume 83.7 80.0-100.0 fL Mean Corpuscular Hemoglobin 28.2 28.0-32.0 pg Mean Corpuscular Hemoglobin Concent 33.7 32.0-36.0 g/dL Red Cell Distribution Width 15.5 H 11.8-14.3 % Platelet Count 312 140-450 10^3/uL Mean Platelet Volume 8.4 6.9-10.8 fL Neutrophils (%) (Auto) 57.4 37.0-80.0 % Lymphocytes (%) (Auto) 31.9 10.0-50.0 % Monocytes (%) (Auto) 6.3 0.0-12.0 % Eosinophils (%) (Auto) 3.8 0.0-7.0 % Basophils (%) (Auto) 0.6 0.0-2.0 % Neutrophils # (Auto) 5.6 1.6-8.6 10 ^3/uL Lymphocytes # (Auto) 3.1 0.4-5.4 10 ^3/uL Monocytes # (Auto) 0.6 0-1.3 10 ^3/uL Eosinophils # (Auto) 0.4 0-0.8 10 ^3/uL Basophils # (Auto) 0.1 0-0.2 10 ^3/uL Nucleated Red Blood Cells 0.1 % Sodium Level 142 136-145 mmol/L Potassium Level 4.4 3.5-5.1 mmol/L Chloride Level 104 98-107 mmol/L Carbon Dioxide Level 26 20-31 mmol/L Anion Gap 12 5-15 Blood Urea Nitrogen 13 9-23 mg/dL Creatinine 0.64 0.550-1.02 mg/dL Glomerular Filtration Rate Calc 97 >90 mL/min BUN/Creatinine Ratio 20.3 H 10.0-20.0 Serum Glucose 160 H 74-106 mg/dL Calcium Level 9.8 8.7-10.4 mg/dL Troponin I High Sensitivity 6 </=34 ng/L Urine Color Light-yellow Yellow Urine Clarity Clear Clear Urine pH 7.0 5.0-9.0 Urine Specific Stokes 1.024 1.001-1.035 Urine Protein Negative Negative Urine Ketones Negative Negative Urine Blood Negative Negative /uL Urine Nitrite Negative Negative Urine Bilirubin Negative Negative Urine Urobilinogen Normal Negative mg/dL Urine Leukocyte Esterase Trace Negative /uL Urine RBC 1 0 - 4 /hpf Urine Microscopic WBC 6 H 0-5 /HPF Urine Squamous Epithelial Cells Few <5 /hpf Urine Bacteria None seen None Seen /hpf Urine Glucose 4+ H Normal mg/dL PATIENT: ISABELA TRENT MACCT: [id number] UNIT: [id number] : 1960 LOC: ER ROOM / BED: / AGE / SEX: 65 / F ADM STATUS: REG ER SERVICE 04 ORDERING PHYSICIAN: KARMEN CHOWDARY PROCEDURE(s): LUMB2 - LUMBAR SPINE 3 VIEW REASON: LOWER LUMBAR BACK PAIN ORDER NUMBER(s): [id number], ACCESSION NUMBER(s): [id number] INDICATION: LOWER LUMBAR BACK PAIN COMPARISON: None TECHNIQUE: 2 views , of the lumbar spine were obtained. FINDINGS: The lumbar vertebral alignment is normal. Mild degenerative changes throughout the lumbar spine No acute fracture, vertebral compression deformity or aggressive osseous lesions. The paravertebral soft tissues are grossly unremarkable. IMPRESSION: 1. No acute fracture. 2. Mild degenerative changes throughout the lumbar spine. ATED BY: YOANA MORALES MD DICTATED DATE/TIME: 05/23/252202 SIGNED BY: YOANA MORALES MD SIGNED DATE/TIME: 05/23/25 0888 CC: CBC reviewed without any significant abnormalities BMP reviewed without any significant abnormalities Troponin reviewed-normal Urinalysis reviewed-urine leukocyte esterase trace, urine nitrites negative, urine blood negative Lumbar spine x-ray reviewed Rocephin 1 g IM ordered Tylenol 650 mg p.o. ordered Zofran 4 mg p.o. ordered Patient had improvement in symptoms and in no distress prior to discharge Advised to drink plenty of fluids Advised to follow up with PCP in 1-2 days Patient verbalized understanding and agreeable with current plan of care Advised to return to ER immediately if symptoms worsen Images Reviewed?: Images reviewed and evaluated by me Time of 1ST Reevaluation: 22:20 Reevaluation 1ST: N/A Patient Education/Counseling: Diagnosis, Treatment, Prognosis, Need For Follow Up Family Education/Counseling: No Family Present SEPSIS Sepsis Screen Date sepsis recognized/suspect: May 23, 2025 Time Sepsis recognized/suspect: 2055 Recent Procedure: No On Antibiotic Therapy: No Respiratory Rate >20: No Heart Rate >90: No Temp<36 C (96.8 F) or >38.3 C: No SBP <90 or MAP <65 mmHG: No New Acute Mental Status Change: No Is the patient on CPAP, BIPAP,: No Physician Orders Lumbar Spine 3 View (05/23/25 21:05) Ceftriaxone Sodium (Rocephin) (05/23/25 22:45) Acetaminophen Tablet (Tylenol Tablet) (05/23/25 22:45) Ondansetron Po (Zofran Po) (05/23/25 22:45) Vital Signs Date Time Temp Pulse Resp B/P (MAP) Pulse Ox O2 Delivery O2 Flow Rate FiO2 05/23/25 20:51 98.6 89 20 146/70 94 98.6 Laboratory Tests Test 05/23/25 21:18 White Blood Count 9.8 10^3/uL (4.4-10.8) Departure 1 Departure Time of Disposition: 22:42 Impression: Primary Impression: UTI (urinary tract infection) Qualified Codes: N30.00 - Acute cystitis without hematuria Disposition: HOME / SELF CARE / HOMELESS Condition: Stable e-Prescriptions Ondansetron Odt 4MG Tab (ZOFRAN PO) 4 Mg Tb 4 MG PO Q8HPRN, #14 TAB 0 Refills ODT TAB-DISSOLVE IN MOUTH, THEN SWALLOW Prov: KARMEN CHOWDARY 05/23/25 Sulfamethoxazole W/Trimethopri (Bactrim Ds Tablet) 1 Tab Tb 1 TAB PO BID for 7 Days, #14 TAB 0 Refills Prov: KARMEN CHOWDARY 05/23/25 Acetaminophen (Acetaminophen) 500 Mg Tab 500 MG PO Q4HPRN, #30 TAB 0 Refills Prov: KARMEN CHOWDARY 05/23/25 Discharged With: Friend Critical Care Note Critical Care Time?: No Stability Stability form required: No Heart Score Heart Score: Heart Score Response (Comments) Value History N/A 0 EKG N/A 0 Age N/A 0 Risk Factors N/A 0 Troponin N/A 0 Total 0 KARMEN CHOWDARY May 23, 2025 22:45
[2025-05-24 00:40] VITALS: BP 117/80; PULSE 76; RESP 16; TEMP 97.6; O2SAT 97
[2025-05-24] MEDS: cefTRIAXone SOD 1,000 MG VL IM ONE (00:56)
== END 2025-05-24 00:50 | disposition home or self-care (01) ==
LOC: ER 20:50
DX: N39.0 Urinary tract infection, site not specified (principal); J45.909 Unspecified asthma, uncomplicated; I10 Essential (primary) hypertension; E11.9 Type 2 diabetes mellitus without complications; Z90.49 Acquired absence of other specified parts of digestive tract; Z79.899 Other long term (current) drug therapy
CPT/HCPCS: 36415; 72100; 80048; 81001; 84484; 85025; 96372; 99284; J0696; Q0162

== ENCOUNTER 2025-08-30 02:42 | Inpatient (IN) | payer MEDICARE, MEDICAID ==
[~2025-08-30] VITALS: Ht 152.4 cm; Wt 67.0 kg
[~2025-08-30 02:42] MED LIST changes: +ACET500T58 PO; +BACDST PO; +ZOFR4T PO
--- NOTE | 2025-08-30 03:28 | ED.PDOC ---
History of Present Illness HPI Comments 65-year-old female who presents with chief complaint of left flank pain, associated fever and dizziness sensation, since this morning. Patient denies on any recent trauma, strenuous activities, such as heavy lifting, sick contact, travel, or further pertinent events/history, with the exception of similar pain episode in the past. Significant history for asthma, DM, HTN. She denies on having any urinary problems, nausea, vomiting, diarrhea, or further acute symptoms. REVIEW OF SYSTEMS: General: Fever, no chills, or fatigue HEENT: No sore throat, no earache, no congestion, no neck pain. Cardiac: No chest pain. No palpitations. Lungs: No shortness of breath, no cough. GI: No nausea, no vomiting, no diarrhea, no constipation, no abdominal pain : No dysuria, frequency, or urgency. No hematuria. Musculoskeletal: Left flank pain. No joint pain , no joint swelling, no extremity edema. Skin: No rash, no itching. Neuro: Dizziness. No headache, no weakness (And as sated in HPI) PHYSICAL EXAM: General: Awake, alert and oriented. No acute distress. Skin: Skin in warm, dry and intact. Appropriate color for ethnicity. HEENT: The head is normocephalic and atraumatic. Conjunctivae are clear without exudates or hemorrhage. Sclera is non-icteric. Eyelids are normal in appearance without swelling or lesions. Oral mucosa is pink and moist Neck: The neck is supple with normal range of motion. No JVD. Cardiac: Rapid rate, regular rhythm. No murmurs, gallops, or rubs are auscultated. Respiratory: No signs of respiratory distress. Lung sounds are clear in all lobes bilaterally without rales, rhonchi, or wheezes. Abdominal: Abdomen is soft, non-tender without distention, guarding or rigidity. Bowel sounds are present and normoactive in all four quadrants. Musculoskeletal: Left lumbar paraspinal and left flank tenderness Extremities: Upper and lower extremities are atraumatic in appearance without deformity or edema. Neurological: The patient is awake, alert and oriented to person, place, and time with normal speech. Speech is clear. There is no facial asymmetry. Psychiatric: Appropriate mood and affect. Good judgement and insight. Chief Complaint: Back Pain Time Seen by MD: 03:20 Primary Care Provider: BARNEY Reviewed Notes: Nurses Notes, Medications, Allergies Allergies: Coded Allergies: NO KNOWN ALLERGIES (Unverified , 11/14/22) Home Meds Active Scripts Ondansetron Odt 4MG Tab (ZOFRAN PO) 4 Mg Tb, 4 MG PO Q8HPRN, #14 TAB 0 Refills ODT TAB-DISSOLVE IN MOUTH, THEN SWALLOW Prov:KARMEN CHOWDARY 05/23/25 Sulfamethoxazole W/Trimethopri (Bactrim Ds Tablet) 1 Tab Tb, 1 TAB PO BID for 7 Days, #14 TAB 0 Refills Prov:KARMEN CHOWDARY 05/23/25 Acetaminophen (Acetaminophen) 500 Mg Tab, 500 MG PO Q4HPRN, #30 TAB 0 Refills Prov:KARMEN CHOWDARY 05/23/25 Prednisone (Prednisone) 10 Mg Tab, 10 MG PO DAILY, #20 MG take 2 tab daily for 5 days , then one tab until finish Prov:REMBERTO BENZ MD 10/30/23 Azithromycin (ZITHROMAX TABLET) 250 Mg Tb, 250 MG PO DAILY, #6 TAB Take 2 tabs the first day, then 1 tab daily until finish Prov:REMBERTO BENZ MD 10/30/23 Albuterol Sulfate (VENTOLIN MDI) 90 Mcg Ih, 90 MCG IN Q4HP PRN, #1 INH 2 puffs prn dyspnea Prov:PADMINI VILLALOBOS NP 12/04/22 Albuterol Sulfate (Albuterol Sulfate Hfa) 108 Mcg/Act Aer, 108 MCG IN Q4HPRN PRN, #1 AER Prov:MIGDALIA HAYES MD 11/18/22 Benzonatate (Tessalon Perles) 100 Mg Cap, 1 CAP PO TID, #30 CAP Prov:MIGDALIA HAYES MD 11/18/22 Sitagliptin Phosphate (Januvia) 50 Mg Tab, 1 TAB PO DAILY, #90 TAB 1 Refill Prov:MIGDALIA HAYES MD 11/18/22 Reported Medications Guaifenesin-Codeine (Robitussin/Codeine) 10 Ml So, 5 ML PO Q6HR, #240 ML 12/04/22 Guaifenesin-Codeine (Robitussin/Codeine) 10 Ml So, 5-10 ML PO Q4HR for 7 Days, #240 ML 12/04/22 Guaifenesin-Codeine (Robitussin/Codeine) 10 Ml So, 5-10 ML PO Q4HR, #240 ML 12/04/22 Ertugliflozin l-Pyroglutamic A (Steglatro) 5 Mg Tab, 5 MG PO DAILY, TAB 12/03/22 Losartan Potassium (Losartan Potassium) 25 Mg Tab, 1 TAB PO DAILY 12/02/22 Ertugliflozin l-Pyroglutamic A (Steglatro) 5 Mg Tab, 5 MG PO HS, TAB 11/15/22 Glipizide (Glipizide) 5 Mg Tab, 5 MG PO TID for 30 Days, MG 11/15/22 Metformin Hydrochloride (Metformin Hcl) 500 Mg Tab, 1000 MG PO BID for 30 Days, MG 11/15/22 Information Source: Patient Mode of Arrival: Ambulatory Severity: Moderate Timing: Hours Duration: Since onset Prehospital treatment: None Past Medical History PAST MEDICAL HISTORY: Asthma, DM, HTN, UTI'S Surgical History: Cholecystectomy 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 Was a procedure done?: No Differential Dx Considerations may include: Differential diagnoses considered include but are not limited to pyelonephritis, UTI, nephrolithiasis, PUD, musculoskeletal pain, AAA, other X-Ray, Labs, Meds, VS Vital Signs Date Time Temp Pulse Resp B/P (MAP) Pulse Ox O2 Delivery O2 Flow Rate FiO2 08/30/25 02:44 99.9 114 20 129/48 95 99.9 Lab Test 08/30/25 04:40 08/30/25 03:50 08/30/25 03:30 Range/Units Influenza Type A Antigen Negative Negative Influenza Type B Antigen Negative Negative SARS-CoV-2 Antigen (Rapid) Negative NEGATIVE Urine Color Light-yellow Yellow Urine Clarity Clear Clear Urine pH 5.5 5.0-9.0 Urine Specific Jenkins 1.033 1.001-1.035 Urine Protein Negative Negative Urine Ketones Negative Negative Urine Blood Negative Negative /uL Urine Nitrite Negative Negative Urine Bilirubin Negative Negative Urine Urobilinogen Normal Negative mg/dL Urine Leukocyte Esterase Negative Negative /uL Urine RBC 1 0 - 4 /hpf Urine Microscopic WBC 1 0-5 /HPF Urine Squamous Epithelial Cells Few <5 /hpf Urine Bacteria None seen None Seen /hpf Urine Glucose 4+ H Normal mg/dL White Blood Count 8.7 4.4-10.8 10^3/uL Red Blood Count 5.49 H 4.0-5.20 10^6/uL Hemoglobin 15.5 12.2-16.2 g/dL Hematocrit 46.0 36.0-46.0 % Mean Corpuscular Volume 83.8 80.0-100.0 fL Mean Corpuscular Hemoglobin 28.2 28.0-32.0 pg Mean Corpuscular Hemoglobin Concent 33.7 32.0-36.0 g/dL Red Cell Distribution Width 14.8 H 11.8-14.3 % Platelet Count 240 140-450 10^3/uL Mean Platelet Volume 8.5 6.9-10.8 fL Neutrophils (%) (Auto) 91.9 H 37.0-80.0 % Lymphocytes (%) (Auto) 3.7 L 10.0-50.0 % Monocytes (%) (Auto) 3.2 0.0-12.0 % Eosinophils (%) (Auto) 0.9 0.0-7.0 % Basophils (%) (Auto) 0.3 0.0-2.0 % Neutrophils # (Auto) 8.0 1.6-8.6 10 ^3/uL Lymphocytes # (Auto) 0.3 L 0.4-5.4 10 ^3/uL Monocytes # (Auto) 0.3 0-1.3 10 ^3/uL Eosinophils # (Auto) 0.1 0-0.8 10 ^3/uL Basophils # (Auto) 0 0-0.2 10 ^3/uL Nucleated Red Blood Cells 0.0 % Sodium Level 141 136-145 mmol/L Potassium Level 4.1 3.5-5.1 mmol/L Chloride Level 103 98-107 mmol/L Carbon Dioxide Level 25 20-31 mmol/L Anion Gap 13 5-15 Blood Urea Nitrogen 14 9-23 mg/dL Creatinine 0.72 0.550-1.02 mg/dL Glomerular Filtration Rate Calc 92 >90 mL/min BUN/Creatinine Ratio 19.4 10.0-20.0 Serum Glucose 175 H 74-106 mg/dL Calcium Level 9.6 8.7-10.4 mg/dL Current Medications Medications (Trade) Dose Ordered Sig/Delaney Route Start Time Stop Time Status Last Admin Ketorolac Tromethamine (Toradol Injection) 30 mg ONCE ONCE IM 08/30/25 04:30 08/30/25 04:32 DC 08/30/25 04:49 Ondansetron HCl (Zofran) 4 mg ONCE ONCE IM 08/30/25 05:00 08/30/25 05:01 DC 08/30/25 05:40 Sodium Chloride 1,000 ml @ 1,000 mls/hr Q1H ONCE IV 08/30/25 05:00 08/30/25 05:59 08/30/25 05:00 Time of 1ST Reevaluation: 03:20 Reevaluation 1ST: Unchanged Patient Education/Counseling: Treatment, Need For Follow Up Family Education/Counseling: No Family Present SEPSIS Sepsis Screen Date sepsis recognized/suspect: Aug 30, 2025 Time Sepsis recognized/suspect: 245 Recent Procedure: No On Antibiotic Therapy: No Respiratory Rate >20: No Heart Rate >90: Yes Temp<36 C (96.8 F) or >38.3 C: No SBP <90 or MAP <65 mmHG: No New Acute Mental Status Change: No Is the patient on CPAP, BIPAP,: No Physician Orders Ct Ab Pel Wo Con-No Oral Or Iv (08/30/25 03:05) Lactic Acid W/ Reflex Order (08/30/25 04:51) Blood Culture (08/30/25 04:51) Sodium Chloride 0.9% (08/30/25 05:00) Vital Signs Date Time Temp Pulse Resp B/P (MAP) Pulse Ox O2 Delivery O2 Flow Rate FiO2 08/30/25 02:44 99.9 114 20 129/48 95 99.9 Laboratory Tests Test 08/30/25 03:30 White Blood Count 8.7 10^3/uL (4.4-10.8) Medications Medications Dose Ordered Sig/Delaney Route Start Time Stop Time Status Last Admin Dose Admin Ketorolac Tromethamine 30 mg ONCE ONCE IM 08/30/25 04:30 08/30/25 04:32 DC 08/30/25 04:49 Ondansetron HCl 4 mg ONCE ONCE IM 08/30/25 05:00 08/30/25 05:01 DC 08/30/25 05:40 Sodium Chloride 1,000 ml @ 1,000 mls/hr Q1H ONCE IV 08/30/25 05:00 08/30/25 05:59 08/30/25 05:00 Departure 1 Departure Time of Disposition: 04:43 Impression: Primary Impression: Tachycardia Additional Impressions: Back pain Suspected sepsis Disposition: ADMITTED INPATIENT Condition: Stable Comments Patient continues to have severe back pain, she is tachycardic and mildly hypotensive. Low-grade fever. She began vomiting during the ED observation. Patient admitted to hospitalist service for further treatment, evaluation and monitoring. Critical Care Note Critical Care Time?: No Stability Stability form required: No Heart Score Heart Score: Heart Score Response (Comments) Value History N/A 0 EKG N/A 0 Age N/A 0 Risk Factors N/A 0 Troponin N/A 0 Total 0 I personally scribed for TAMMY PIERCE MD ([email or web address]) on 08/30/25 at 03:28. Electronically submitted by Teto Pearson [email or web address]). TAMMY PIERCE MD Aug 30, 2025 03:28
--- NOTE | 2025-08-30 03:45 | DVH ---
MEDICAL RECORDS NUMBER: [id number] PROCEDURE: CT CT AB PEL WO CON-NO ORAL OR IV DATE: 08/30/2025 03:18 AM HISTORY: Flank Pain TECHNIQUE: CT of the abdomen and pelvis is performed without IV contrast. CONTRAST: none Oral Contrast: No oral contrast was utilized. COMPARISON: None RADIATION DOSE INFORMATION: Automated exposure control dose reduction techniques were used. FINDINGS: Lung bases: Limited evaluation of the lung bases demonstrates no focal airspace process or pneumothorax. Mediastinum:Lower mediastinal structures appear unremarkable. Liver: The liver is normal in size. There is no focal liver lesion. Biliary ducts: There is no evidence of intrahepatic or extrahepatic biliary ductal dilatation. Gallbladder: The gallbladder has apparently been surgically removed. Spleen: The spleen is normal in size without focal lesion. Stomach: The stomach appears unremarkable. Pancreas: The pancreas is unremarkable. Adrenal glands: The adrenal glands are unremarkable. Kidneys: The kidneys are normal in size and are symmetric. There is no evidence of hydronephrosis. No focal renal lesion is noted. Aorta and IVC: The aorta and IVC are patent and are normal in size. Mesenteric vessels: Major mesenteric vessels appear to be intact. Bowel: The visualized portions of the small and large bowel are normal in caliber. Appendix: The appendix is unremarkable. Pelvis:Pelvic structures appear unremarkable. Lymph nodes: There is no evidence of lymphadenopathy. Osseous structures: Degenerative changes are seen of the lumbar spine. There does appear to be significant circumferential disc bulging at L4-L5 and L5-S1 with subdural foraminal crowding at these levels. Free fluid/free air: None IMPRESSION: 1. No evidence of acute intra-abdominal or intrapelvic process. 2. No evidence of hydronephrosis or nephrolithiasis. 3. Degenerative changes of the lumbar spine with significant disc bulging at L4- L5 and L5-SNonemergent MRI might be helpful
[2025-08-30 04:04] LABS: Hematocrit 46.0 % (36.0-46.0); Hemoglobin 15.5 g/dL (12.2-16.2); Mean Corpuscular Hemoglobin 28.2 pg (28.0-32.0); Mean Corpuscular Volume 83.8 fL (80.0-100.0); Nucleated Red Blood Cells % 0.0 %
[2025-08-30 04:05] LABS: Chloride 103 mmol/L (98-107); Potassium 4.1 mmol/L (3.5-5.1); Sodium 141 mmol/L (136-145)
[2025-08-30 04:06] LABS: Anion Gap 13 (5-15); Calcium 9.6 mg/dL (8.7-10.4); Carbon Dioxide 25 mmol/L (20-31)
[2025-08-30 04:11] LABS: BUN/Creatinine Ratio 19.4 (10.0-20.0); Blood Urea Nitrogen 14 mg/dL (9-23)
[2025-08-30 04:17] LABS: Urine Protein, UAD Negative (Negative)
[2025-08-30 04:17] LABS: Glucose 175 mg/dL (74-106)
[2025-08-30] MEDS: KETOROLAC TROMETH 30 MG/ML 1ML VIAL IM ONE (04:49)
[2025-08-30] MEDS: SODIUM CHLORIDE 0.9% 1,000 ML IV ONE ×3 (05:00→10:12)
[2025-08-30] MEDS: ONDANSETRON HCL 4 MG/2 ML VIAL IM ONE (05:40)
[2025-08-30 05:48] LABS: COVID19 ANTIGEN SOFIA FIA NEGATIVE (NEGATIVE)
--- NOTE | 2025-08-30 06:58 | ECG ---
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
[2025-08-30 07:32] LABS: Lactic Acid w/Reflex 2.5 mmol/L (0.4-2.0)
[2025-08-30] MEDS ORDERED: DOCUSATE SOD 100 MG CAP PO PRN (07:45)
[2025-08-30] MEDS ORDERED: DEXTROSE (50%) 50ML SYRG IV PRN (07:45)
[2025-08-30] MEDS ORDERED: MORPHINE SULFATE INJ 2 MG/ml SYRG IV PRN (07:45)
[2025-08-30] MEDS ORDERED: ONDANSETRON HCL 4 MG/2 ML VIAL IV PRN (07:45)
[2025-08-30] MEDS ORDERED: GLIP10TA9 PO (07:52)
[2025-08-30] MEDS ORDERED: ATOR20TA50 PO (07:52)
[2025-08-30] MEDS ORDERED: SITA100T7 PO (07:52)
--- NOTE | 2025-08-30 07:59 | DVHHP2 ---
History of Present Illness Reason for Visit: Left flank pain History of Present Illness Madyson Bailey is a 65-year-old female with past medical history of hypertension, hyperlipidemia, asthma, and diabetes, who came to the hospital due to left flank pain and fever. Patient states her symptoms came on suddenly last night with associated nausea and headaches. Cardiovascular: HTN, hyperipidemia Pulmonary: Asthma Endocrine: Diabetes Past Surgical History: Cholecystectomy, (x 3) Smoke: No ALCOHOL: none Drugs: None Lives: with Family Domestic Violence: Neg Review of Systems Constitutional: Yes: Fever, Other (Headache); No: Chills, Sweats, Weakness, Malaise Eyes: No: Pain, Vision change, Conjunctivae inflammation, Eyelid inflammation, Other, Redness ENT: No: Ear pain, Ear discharge, Nose pain, Nose discharge, Nose congestion, Mouth pain, Mouth swelling, Throat pain, Throat swelling, Other Respiratory: No: Cough, Dry, Shortness of breath, SOB with excertion, Wheezing, Hemoptysis, Pleuritic Pain, Sputum, Wheezing, Other Cardiovascular: No: Chest Pain, Palpitations, Orthopnea, Paroxysmal Noc. Dys pnea, Edema, Lt Headedness, Other Gastrointestinal: Nausea; No: Vomiting, Abdominal Pain, Diarrhea, Constipation, Melena, Hematochezia, Other Genitourinary: No Dysuria, No Frequency, No Incontinence, No Hematuria, No Retention, No Other Musculoskeletal: back pain (left flank); No: other, neck pain, shoulder pain, arm pain, hand pain, leg pain, foot pain Skin: No: Rash, Lesions, Jaundice, Bruising, Other Neurological: No: Weakness, Numbness, Incoordination, Change in speech, Confusion, Seizures, Other Allergies: Coded Allergies: NO KNOWN ALLERGIES (Unverified , 11/14/22) Medications Current Medications Medications Dose Ordered Sig/Delaney Route Start Time Stop Time Status Last Admin Dose Admin Acetaminophen/ Hydrocodone Bitart 1 tab Q4HP PRN PO 08/30/25 07:45 UNV Ondansetron HCl 4 mg Q4HP PRN IV 08/30/25 07:45 UNV Docusate Sodium 100 mg BIDPRN PRN PO 08/30/25 07:45 UNV Acetaminophen 650 mg Q6HP PRN PO 08/30/25 07:45 UNV Morphine Sulfate 2 mg Q4HPRN PRN IV 08/30/25 07:45 UNV Diagnostic Test (Pha) 1 strip ACHS 08/30/25 11:30 UNV Insulin Human Regular HS SC 08/30/25 22:00 UNV Insulin Human Regular AC SC 08/30/25 11:30 UNV Dextrose 50 ml UD PRN IV 08/30/25 07:45 UNV Ceftriaxone Sodium 50 ml @ 100 mls/hr DAILY@09 IV 08/30/25 09:00 UNV Losartan Potassium 25 mg DAILY PO 08/30/25 10:00 UNV Patient Own Medication 5 mg HS PO 08/30/25 22:00 UNV Exam Vital Signs Vital Signs Date Time Temp Pulse Resp B/P (MAP) Pulse Ox O2 Delivery O2 Flow Rate FiO2 08/30/25 06:56 103 08/30/25 06:17 20 96 Room Air 08/30/25 06:17 98.6 96/60 (72) 98.6 General Appearance: Alert, Oriented X3, Cooperative, mild distress HEENT: Atraumatic, PERRLA Respiratory: Clear to auscultation, Normal air movement Cardiovascular: Normal S1, Normal S2, Other (ST) Abdominal: Normal bowel sounds, Soft, No tenderness Extremities: No clubbing, No cyanosis, No edema, Normal pulses Skin: No rashes, No breakdown, No significant lesion Neuro: Normal gait, Normal speech, Strength at 5/5 X4 ext Psych/Mental Status: Mental status NL, Mood NL Labs/Xrays Labs Test 08/30/25 06:26 08/30/25 04:40 08/30/25 03:50 08/30/25 03:30 Range/Units Lactic Acid Level 2.5 *H 0.4-2.0 mmol/L Troponin I High Sensitivity 9 </=34 ng/L Influenza Type A Antigen Negative Negative Influenza Type B Antigen Negative Negative SARS-CoV-2 Antigen (Rapid) Negative NEGATIVE Urine Color Light-yellow Yellow Urine Clarity Clear Clear Urine pH 5.5 5.0-9.0 Urine Specific [place] 1.033 1.001-1.035 Urine Protein Negative Negative Urine Ketones Negative Negative Urine Blood Negative Negative /uL Urine Nitrite Negative Negative Urine Bilirubin Negative Negative Urine Urobilinogen Normal Negative mg/dL Urine Leukocyte Esterase Negative Negative /uL Urine RBC 1 0 - 4 /hpf Urine Microscopic WBC 1 0-5 /HPF Urine Squamous Epithelial Cells Few <5 /hpf Urine Bacteria None seen None Seen /hpf Urine Glucose 4+ H Normal mg/dL White Blood Count 8.7 4.4-10.8 10^3/uL Red Blood Count 5.49 H 4.0-5.20 10^6/uL Hemoglobin 15.5 12.2-16.2 g/dL Hematocrit 46.0 36.0-46.0 % Mean Corpuscular Volume 83.8 80.0-100.0 fL Mean Corpuscular Hemoglobin 28.2 28.0-32.0 pg Mean Corpuscular Hemoglobin Concent 33.7 32.0-36.0 g/dL Red Cell Distribution Width 14.8 H 11.8-14.3 % Platelet Count 240 140-450 10^3/uL Mean Platelet Volume 8.5 6.9-10.8 fL Neutrophils (%) (Auto) 91.9 H 37.0-80.0 % Lymphocytes (%) (Auto) 3.7 L 10.0-50.0 % Monocytes (%) (Auto) 3.2 0.0-12.0 % Eosinophils (%) (Auto) 0.9 0.0-7.0 % Basophils (%) (Auto) 0.3 0.0-2.0 % Neutrophils # (Auto) 8.0 1.6-8.6 10 ^3/uL Lymphocytes # (Auto) 0.3 L 0.4-5.4 10 ^3/uL Monocytes # (Auto) 0.3 0-1.3 10 ^3/uL Eosinophils # (Auto) 0.1 0-0.8 10 ^3/uL Basophils # (Auto) 0 0-0.2 10 ^3/uL Nucleated Red Blood Cells 0.0 % Sodium Level 141 136-145 mmol/L Potassium Level 4.1 3.5-5.1 mmol/L Chloride Level 103 98-107 mmol/L Carbon Dioxide Level 25 20-31 mmol/L Anion Gap 13 5-15 Blood Urea Nitrogen 14 9-23 mg/dL Creatinine 0.72 0.550-1.02 mg/dL Glomerular Filtration Rate Calc 92 >90 mL/min BUN/Creatinine Ratio 19.4 10.0-20.0 Serum Glucose 175 H 74-106 mg/dL Calcium Level 9.6 8.7-10.4 mg/dL SEPSIS Sepsis Screen Date sepsis recognized/suspect: Aug 30, 2025 Time Sepsis recognized/suspect: 617 Recent Procedure: No On Antibiotic Therapy: No Respiratory Rate >20: No Heart Rate >90: Yes Temp<36 C (96.8 F) or >38.3 C: No SBP <90 or MAP <65 mmHG: No New Acute Mental Status Change: No Is the patient on CPAP, BIPAP,: No Physician Orders Ct Ab Pel Wo Con-No Oral Or Iv (08/30/25 03:05) Blood Culture (08/30/25 04:51) Admit (08/30/25 07:39) Code Status (08/30/25 07:39) 2 Gm Sodium Diet (08/30/25 Breakfast) Hydrocodone-Acet 5/325mg Tab ([place] 5/32 (08/30/25 07:45) Ondansetron Hcl (Zofran) (08/30/25 07:45) Docusate Sodium Capsule (Colace Capsule) (08/30/25 07:45) Complete Blood Count (08/31/25 04:00) Comprehensive Metabolic Panel (08/31/25 04:00) Condition: Serious (08/30/25 07:39) Acetaminophen Tablet (Tylenol Tablet) (08/30/25 07:45) Morphine Sulfate Injection (08/30/25 07:45) Glucose Blood (Accu-Chek Comfort Curve T (08/30/25 11:30) Insulin R (Human) (Insulin R) (08/30/25 22:00) Insulin R (Human) (Insulin R) (08/30/25 11:30) Dextrose 50% Syringe (08/30/25 07:45) Ceftriaxone 1gm/50ml (Rocephin) (08/30/25 09:00) Sodium Chloride 0.9% (08/30/25 07:45) Sodium Chloride 0.9% (08/30/25 07:45) Losartan Tablet (Cozaar Tablet) (08/30/25 10:00) (Nf) Ertugliflozin L-Pyroglutamic A (Elton (08/30/25 22:00) Atorvastatin (Lipitor) (08/30/25 22:00) (Nf) Glipizide (08/30/25 10:00) (Nf) Sitagliptin Phosphate (Januvia) (08/30/25 10:00) Vital Signs Date Time Temp Pulse Resp B/P (MAP) Pulse Ox O2 Delivery O2 Flow Rate FiO2 08/30/25 06:56 103 08/30/25 06:17 103 20 96 Room Air 08/30/25 06:17 98.6 103 20 96/60 (72) 93 98.6 08/30/25 02:44 99.9 114 20 129/48 95 99.9 Laboratory Tests Test 08/30/25 03:30 08/30/25 06:26 White Blood Count 8.7 10^3/uL (4.4-10.8) Lactic Acid Level 2.5 mmol/L (0.4-2.0) *H Medications Medications Dose Ordered Sig/Delaney Route Start Time Stop Time Status Last Admin Dose Admin Ketorolac Tromethamine 30 mg ONCE ONCE IM 08/30/25 04:30 08/30/25 04:32 DC 08/30/25 04:49 30 MG Ondansetron HCl 4 mg ONCE ONCE IM 08/30/25 05:00 08/30/25 05:01 DC 08/30/25 05:40 4 MG Sodium Chloride 1,000 ml @ 1,000 mls/hr Q1H ONCE IV 08/30/25 05:00 08/30/25 05:59 DC 08/30/25 05:00 1,000 MLS/HR Assessment/Plan Assessment/Plan Assessment: Lactic acid acidosis, L4-L5 bulging disc, Hyperglycemia, Hypertension, Diabetes, Hyperlipidemia, Plan: Admit to Med-Surg, IV antibiotics, IV hydration, Blood cultures, Consider MRI of spine, Consider Spine surgery consult, Home medications reconciled, Plan discussed with: Patient My Orders Orders - BILLY BECERRA Procedure Category Date Status Time Admit ADMIT 08/30/25 Transmitted 07:39 Code Status CODE 08/30/25 Transmitted 07:39 2 Gm Sodium Diet DIET 08/30/25 Transmitted Breakfast Hydrocodone-Acet PHA 08/30/25 Logged 5/325mg Tab ([place] 07:45 Ondansetron Hcl PHA 08/30/25 Logged (Zofran) 07:45 Docusate Sodium PHA 08/30/25 Logged Capsule (Colace 07:45 Complete Blood Count LAB 08/31/25 Verified 04:00 Comprehensive LAB 08/31/25 Verified Metabolic Panel 04:00 Condition: Serious MARIANELA 08/30/25 In Process 07:39 Acetaminophen Tablet PHA 08/30/25 Logged (Tylenol Tablet) 07:45 Morphine Sulfate PHA 08/30/25 Logged Injection 07:45 Glucose Blood PHA 08/30/25 Logged (Accu-Chek Comfort 11:30 Insulin R (Human) PHA 08/30/25 Logged (Insulin R) 22:00 Insulin R (Human) PHA 08/30/25 Logged (Insulin R) 11:30 Dextrose 50% Syringe PHA 08/30/25 Logged 07:45 Ceftriaxone 1gm/50ml PHA 08/30/25 Logged (Rocephin) 09:00 Sodium Chloride 0.9% PHA 08/30/25 Logged 07:45 Sodium Chloride 0.9% PHA 08/30/25 Logged 07:45 Losartan Tablet PHA 08/30/25 Logged (Cozaar Tablet) 10:00 (Nf) Ertugliflozin PHA 08/30/25 Logged L-Pyroglutamic A (Elton 22:00 Atorvastatin (Lipitor) PHA 08/30/25 Verified 22:00 (Nf) Glipizide PHA 08/30/25 Verified 10:00 (Nf) Sitagliptin PHA 08/30/25 Verified Phosphate (Januvia) 10:00 Date of Service: Aug 30, 2025 Billing Provider: BILLY BECERRA Common Visit Codes: [id number] INP/OBS CARE (MOD) BILLY BECERRA Aug 30, 2025 07:59
[2025-08-30 09:00] VITALS: BP 80/43; PULSE 101; RESP 18; TEMP 98.2; O2SAT 95
[2025-08-30] MEDS: VANCOMYCIN 1.25GM/250ML 250 ML IV ONE (09:45)
[2025-08-30] MEDS: LOSARTAN POTASSIUM 25 MG TAB PO SCH (10:00)
[2025-08-30] MEDS: ACCU-CHEK COMFORT CURVE STRIP VI SCH (11:30)
[2025-08-30] MEDS: InsuLIN REG 1unit/0.01ml Soln (100units/ml) SC SCH ×2 (12:30→21:19)
--- NOTE | 2025-08-30 12:46 | DVH ---
PROCEDURE: MRI LUMBAR SPINE WO CONTRAST INDICATION: L4-L5 bulging disc Exam Date: 08/30/2025 11:46 AM COMPARISON: MRI of the lumbar spine dated 08/30/2025, radiographs of the lumbar spine dated 05/23/2025. TECHNIQUE: MRI lumbar spine without intravenous contrast. FINDINGS: No fracture or listhesis of the lumbar spine. The conus terminates at L1. L1-L2: There is a minimal circumferential disc bulge. No significant spinal canal stenosis or neural foraminal stenosis bilaterally. L2-L3: There is a minimal circumferential disc bulge. No significant spinal canal stenosis or neural foraminal stenosis bilaterally. L3-L4: There is disc desiccation without loss of disc height. There is a mild circumferential disc bulge. There is a small disc annulus tear anteriorly in the midline. No significant spinal canal stenosis or neural foraminal stenosis bilaterally. L4-L5: There is disc desiccation without loss of disc height. There is a circumferential disc bulge which is most prominent posteriorly in the midline measuring 5 mm AP. There is bilateral facet hypertrophy, greater on the right. No significant spinal canal stenosis or neural foraminal stenosis bilaterally. L5-S1: There is disc desiccation without loss of disc height. There is a circumferential disc bulge, most prominent posteriorly in the midline measuring 3.2 mm AP. There is a focal disc annulus tear in the left paracentral region. There is bilateral facet hypertrophy, greater on the right. No significant spinal canal stenosis. There is mild bilateral neural foraminal stenosis. IMPRESSION: 1. No fracture of the lumbar spine. 2. Degenerative disc disease and facet arthropathy without high-grade spinal canal stenosis or neural foraminal stenosis at any level in the lumbar spine.
[2025-08-30 12:50] VITALS: BP 106/50; PULSE 113; RESP 18; TEMP 101.2; O2SAT 90
[2025-08-30] MEDS: ACETAMINOPHEN 325 MG TAB PO PRN (12:55)
[2025-08-30 14:08] LABS: Lactic Acid w/Reflex 2.3 mmol/L (0.4-2.0)
[2025-08-30 16:50] VITALS: BP 83/38; PULSE 80; RESP 17; TEMP 98.2; O2SAT 91
[2025-08-30] MEDS: glipiZIDE 5 MG TAB PO SCH (17:00)
[2025-08-30 17:27] LABS: Urine Protein, UAD Negative (Negative)
[2025-08-30 20:00] VITALS: RESP 16
[2025-08-30 21:00] VITALS: BP 99/50; PULSE 92; RESP 18; TEMP 98.3; O2SAT 93
[2025-08-30] MEDS: ATORVASTATIN 20 MG TAB PO SCH (21:17)
[2025-08-31 01:00] VITALS: BP 105/59; PULSE 82; RESP 18; TEMP 98.7; O2SAT 93
[2025-08-31 05:00] VITALS: BP 104/56; PULSE 77; RESP 19; TEMP 98.6; O2SAT 98
[2025-08-31 05:10] LABS: Hematocrit 38.4 % (36.0-46.0); Hemoglobin 12.8 g/dL (12.2-16.2); Mean Corpuscular Hemoglobin 28.1 pg (28.0-32.0); Mean Corpuscular Volume 84.1 fL (80.0-100.0); Nucleated Red Blood Cells % 0.2 %
[2025-08-31 05:16] LABS: Alanine Aminotransferase 31 U/L (7-40); Albumin 3.4 g/dL (3.2-4.8); Alkaline Phosphatase 47 U/L (46-116); Anion Gap 8 (5-15); BUN/Creatinine Ratio 16.7 (10.0-20.0); Carbon Dioxide 25 mmol/L (20-31); Potassium 4.0 mmol/L (3.5-5.1); Sodium 142 mmol/L (136-145); Total Protein 5.8 g/dL (5.7-8.2)
[2025-08-31 05:17] LABS: Bilirubin, Total 0.3 mg/dL (0.2-1.0)
[2025-08-31 05:24] LABS: Blood Urea Nitrogen 8 mg/dL (9-23); Chloride 109 mmol/L (98-107); Glucose 125 mg/dL (74-106)
[2025-08-31 05:25] LABS: Calcium 7.9 mg/dL (8.7-10.4)
[2025-08-31 09:00] VITALS: BP 91/55; PULSE 79; RESP 16; TEMP 98.9; O2SAT 93
[2025-08-31] MEDS: HYDROcodone-ACET 5/325MG TAB PO PRN (09:22)
[2025-08-31] MEDS: Sitagliptin Phosphate (Januvia) 100MG TABLET PO SCH (09:24)
[2025-08-31 11:06] LABS: Lactic Acid w/Reflex 2.2 mmol/L (0.4-2.0)
--- NOTE | 2025-08-31 12:23 | DVHINCON2 ---
Consultation - Surgical Date Seen: Aug 31, 2025 Referring Physician Referring Physician Attending Doctor: Nicole Pickens MD Reason for Consultation Reason for Visit: Left flank pain History of Present Illness History of Present Illness History of Present Illness Madyson Bailey is a 65-year-old female with past medical history of hypertension, hyperlipidemia, asthma, and diabetes, who came to the hospital due to left flank pain and fever. Patient states her symptoms came on suddenly last night with associated nausea and headaches. patient slipped and fell last month, she has low back pain, she is able to walk and is having muscle spasms. Past Medical/Surgical History Past Medical/Surgical History Cardiovascular: HTN, hyperipidemia Pulmonary: Asthma Endocrine: Diabetes Past Surgical History: Cholecystectomy, (x 3) Family and Social History Family and Social History Smoke: No ALCOHOL: none Drugs: None Lives: with Family Domestic Violence: Neg Allergies and medications Allergies: Coded Allergies: NO KNOWN ALLERGIES (Unverified , 11/14/22) Home Meds Active Scripts Acetaminophen (Acetaminophen) 500 Mg Tab, 500 MG PO Q4HPRN, #30 TAB 0 Refills Prov:KARMEN CHOWDARY 05/23/25 Albuterol Sulfate (VENTOLIN MDI) 90 Mcg Ih, 90 MCG IN Q4HP PRN, #1 INH 2 puffs prn dyspnea Prov:PADMINI VILLALOBOS PROVIDER RELATIONS COORDINATOR 12/04/22 Albuterol Sulfate (Albuterol Sulfate Hfa) 108 Mcg/Act Aer, 108 MCG IN Q4HPRN PRN, #1 AER Prov:MIGDALIA HAYES MD 11/18/22 Reported Medications Atorvastatin Calcium (ATORVASTATIN CALCIUM) 20 Mg Tab, 20 MG PO HS 08/30/25 Sitagliptin Phosphate (Januvia) 100 Mg Tab, 1 TAB PO DAILY 08/30/25 Glipizide (Glipizide) 10 Mg Tab, 1 TAB PO BID 08/30/25 Guaifenesin-Codeine (Robitussin/Codeine) 10 Ml So, 5-10 ML PO Q4HR, #240 ML 12/04/22 Losartan Potassium (Losartan Potassium) 25 Mg Tab, 1 TAB PO DAILY 12/02/22 Ertugliflozin l-Pyroglutamic A (Steglatro) 5 Mg Tab, 5 MG PO HS, TAB 11/15/22 Metformin Hydrochloride (Metformin Hcl) 500 Mg Tab, 1000 MG PO BID for 30 Days, MG 11/15/22 Discontinued Reported Medications Guaifenesin-Codeine (Robitussin/Codeine) 10 Ml So, 5 ML PO Q6HR, #240 ML 12/04/22 Guaifenesin-Codeine (Robitussin/Codeine) 10 Ml So, 5-10 ML PO Q4HR for 7 Days, #240 ML 12/04/22 Ertugliflozin l-Pyroglutamic A (Steglatro) 5 Mg Tab, 5 MG PO DAILY, TAB 12/03/22 Glipizide (Glipizide) 5 Mg Tab, 5 MG PO TID for 30 Days, MG 11/15/22 Discontinued Scripts Ondansetron Odt 4MG Tab (ZOFRAN PO) 4 Mg Tb, 4 MG PO Q8HPRN, #14 TAB 0 Refills ODT TAB-DISSOLVE IN MOUTH, THEN SWALLOW Prov:KARMEN CHOWDARY 05/23/25 Sulfamethoxazole W/Trimethopri (Bactrim Ds Tablet) 1 Tab Tb, 1 TAB PO BID for 7 Days, #14 TAB 0 Refills Prov:KARMEN CHOWDARY 05/23/25 Prednisone (Prednisone) 10 Mg Tab, 10 MG PO DAILY, #20 MG take 2 tab daily for 5 days , then one tab until finish Prov:REMBERTO BENZ MD 10/30/23 Azithromycin (ZITHROMAX TABLET) 250 Mg Tb, 250 MG PO DAILY, #6 TAB Take 2 tabs the first day, then 1 tab daily until finish Prov:REMBERTO BENZ MD 10/30/23 Benzonatate (Tessalon Perles) 100 Mg Cap, 1 CAP PO TID, #30 CAP Prov:MIGDALIA HAYES MD 11/18/22 Sitagliptin Phosphate (Januvia) 50 Mg Tab, 1 TAB PO DAILY, #90 TAB 1 Refill Prov:MIGDALIA HAYES MD 11/18/22 Review of systems Review of Systems: MSK:Abnormal (low back pain ), NEURO:Normal Examination Vital signs IMAGING: ORDERING PHYSICIAN: NICOLE PICKENS MD PROCEDURE(s): MSL - LUMBAR SPINE WO CONTRAST REASON: L4L5 bulging disc ORDER NUMBER(s): [id number], ACCESSION NUMBER(s): [id number] PROCEDURE: MRI LUMBAR SPINE WO CONTRAST INDICATION: L4-L5 bulging disc Exam Date: 08/30/2025 11:46 AM COMPARISON: MRI of the lumbar spine dated 08/30/2025, radiographs of the lumbar spine dated 05/23/2025. TECHNIQUE: MRI lumbar spine without intravenous contrast. FINDINGS: No fracture or listhesis of the lumbar spine. The conus terminates at L1. L1-L2: There is a minimal circumferential disc bulge. No significant spinal canal stenosis or neural foraminal stenosis bilaterally. L2-L3: There is a minimal circumferential disc bulge. No significant spinal canal stenosis or neural foraminal stenosis bilaterally. L3-L4: There is disc desiccation without loss of disc height. There is a mild circumferential disc bulge. There is a small disc annulus tear anteriorly in the midline. No significant spinal canal stenosis or neural foraminal stenosis bilaterally. L4-L5: There is disc desiccation without loss of disc height. There is a circumferential disc bulge which is most prominent posteriorly in the midline measuring 5 mm AP. There is bilateral facet hypertrophy, greater on the right. No significant spinal canal stenosis or neural foraminal stenosis bilaterally. L5-S1: There is disc desiccation without loss of disc height. There is a circumferential disc bulge, most prominent posteriorly in the midline measuring 3.2 mm AP. There is a focal disc annulus tear in the left paracentral region. There is bilateral facet hypertrophy, greater on the right. No significant spinal canal stenosis. There is mild bilateral neural foraminal stenosis. IMPRESSION: 1. No fracture of the lumbar spine. 2. Degenerative disc disease and facet arthropathy without high-grade spinal canal stenosis or neural foraminal stenosis at any level in the lumbar spine. Vital Signs Date Time Temp Pulse Resp B/P (MAP) Pulse Ox O2 Delivery O2 Flow Rate FiO2 08/31/25 09:22 91/55 08/31/25 09:00 98.9 79 16 93 98.9 08/31/25 07:30 Room Air* 0 21 Medications Current Medications Medications (Trade) Dose Ordered Sig/Delaney Route PRN Reason Start Time Stop Time Status Last Admin Insulin Human Regular (InsuLIN R) HS SC 08/30/25 22:00 08/30/25 21:19 Patient Own Medication 5 mg HS PO 08/30/25 22:00 Atorvastatin Calcium (Lipitor) 20 mg HS PO 08/30/25 22:00 08/30/25 21:17 Glipizide (Glucotrol Tablet) 10 mg BIDAC PO 08/30/25 17:00 08/31/25 05:44 Patient Own Medication 1 tab DAILY PO 08/31/25 10:00 Laboratory Labs Test 08/31/25 11:28 08/31/25 10:03 08/31/25 04:23 08/30/25 17:03 Range/Units POC Glucose 173 H 70-106 mg/dl Lactic Acid Level 2.2 *H 0.4-2.0 mmol/L White Blood Count 3.2 #L 4.4-10.8 10^3/uL Red Blood Count 4.57 4.0-5.20 10^6/uL Hemoglobin 12.8 # 12.2-16.2 g/dL Hematocrit 38.4 # 36.0-46.0 % Mean Corpuscular Volume 84.1 80.0-100.0 fL Mean Corpuscular Hemoglobin 28.1 28.0-32.0 pg Mean Corpuscular Hemoglobin Concent 33.4 32.0-36.0 g/dL Red Cell Distribution Width 14.9 H 11.8-14.3 % Platelet Count 157 140-450 10^3/uL Mean Platelet Volume 8.6 6.9-10.8 fL Neutrophils (%) (Auto) 50.2 37.0-80.0 % Lymphocytes (%) (Auto) 30.8 10.0-50.0 % Monocytes (%) (Auto) 17.4 H 0.0-12.0 % Eosinophils (%) (Auto) 0.8 0.0-7.0 % Basophils (%) (Auto) 0.8 0.0-2.0 % Neutrophils # (Auto) 1.6 1.6-8.6 10 ^3/uL Lymphocytes # (Auto) 1.0 0.4-5.4 10 ^3/uL Monocytes # (Auto) 0.6 0-1.3 10 ^3/uL Eosinophils # (Auto) 0 0-0.8 10 ^3/uL Basophils # (Auto) 0 0-0.2 10 ^3/uL Nucleated Red Blood Cells 0.2 % Sodium Level 142 136-145 mmol/L Potassium Level 4.0 3.5-5.1 mmol/L Chloride Level 109 H 98-107 mmol/L Carbon Dioxide Level 25 20-31 mmol/L Anion Gap 8 5-15 Blood Urea Nitrogen 8 L 9-23 mg/dL Creatinine 0.48 #L 0.550-1.02 mg/dL Glomerular Filtration Rate Calc 104 >90 mL/min BUN/Creatinine Ratio 16.7 10.0-20.0 Serum Glucose 125 H 74-106 mg/dL Hemoglobin A1c 7.9 H <5.7 % A1C Calcium Level 7.9 L 8.7-10.4 mg/dL Total Bilirubin 0.3 0.2-1.0 mg/dL Aspartate Amino Transferase (AST) 37 13-40 U/L Alanine Aminotransferase (ALT) 31 7-40 U/L Alkaline Phosphatase 47 46-116 U/L Total Protein 5.8 5.7-8.2 g/dL Albumin 3.4 3.2-4.8 g/dL Urine Color Light-yellow Yellow Urine Clarity Clear Clear Urine pH 5.5 5.0-9.0 Urine Specific [place] 1.033 1.001-1.035 Urine Protein Negative Negative Urine Ketones Negative Negative Urine Blood Negative Negative /uL Urine Nitrite Negative Negative Urine Bilirubin Negative Negative Urine Urobilinogen Normal Negative mg/dL Urine Leukocyte Esterase Negative Negative /uL Urine RBC <1 0 - 4 /hpf Urine Microscopic WBC 1 0-5 /HPF Urine Squamous Epithelial Cells Few <5 /hpf Urine Bacteria None seen None Seen /hpf Urine Glucose 4+ H Normal mg/dL Test 08/30/25 06:26 08/30/25 04:40 Range/Units Troponin I High Sensitivity 9 </=34 ng/L Influenza Type A Antigen Negative Negative Influenza Type B Antigen Negative Negative SARS-CoV-2 Antigen (Rapid) Negative NEGATIVE Microbiology Date/Time Source Procedure Growth Status 08/30/25 06:05 Blood Blood Culture - Preliminary NO GROWTH AFTER 24 HOURS OF INCUBATION. Resulted 08/30/25 03:50 Voided Urine Urine Culture - Preliminary Resulted Examination: GENERAL:Normal, HEENT:Normal, NECK:Normal, LUNGS:Normal, CVS:Normal, ABDOMEN:Normal, MSK:Abnormal (low back pain 5/5 all extremities), SKIN:Normal, NEURO:Normal, :Normal Problem List/Assessment/Plan Problems: (1) Disc degeneration, lumbar Assessment and Plan DDD multilevel lumbar Degenerative disc disease and facet arthropathy without high-grade spinal canal stenosis or neural foraminal stenosis at any level in the lumbar spine. continue supportive care per admitting team discretion non operative care, muscle relaxer, single dose decadron 10mg to reduce inflammation follow up with PCP for lumbar physical therapy. No barriers to Dc from spine perspective Plan discussed with Plan discussed with: Patient, Other Visit Coding Surgery Date of Service if different f: Aug 31, 2025 Billing Provider: PERLA AVALOS NP Surgery Visit Codes: 71472 - INP CONSULT <55 MIN PERLA AVALOS NP Aug 31, 2025 12:23
[2025-08-31 13:00] VITALS: BP 94/44; PULSE 77; RESP 17; TEMP 98.3; O2SAT 96
[2025-08-31] MEDS: METHOCARBAMOL 500 MG TAB PO SCH (14:04)
--- NOTE | 2025-08-31 14:19 | DVHDS2 ---
Discharge Summary Date of Admission Aug 30, 2025 at 07:39 Date of Discharge: Aug 31, 2025 Labs/Diagnostic Data: Laboratory Results Test 08/31/25 11:28 08/31/25 10:03 08/31/25 04:23 08/30/25 17:03 POC Glucose 173 mg/dl (70-106) Lactic Acid Level 2.2 mmol/L (0.4-2.0) White Blood Count 3.2 10^3/uL (4.4-10.8) Red Blood Count 4.57 10^6/uL (4.0-5.20) Hemoglobin 12.8 g/dL (12.2-16.2) Hematocrit 38.4 % (36.0-46.0) Mean Corpuscular Volume 84.1 fL (80.0-100.0) Mean Corpuscular Hemoglobin 28.1 pg (28.0-32.0) Mean Corpuscular Hemoglobin Concent 33.4 g/dL (32.0-36.0) Red Cell Distribution Width 14.9 % (11.8-14.3) Platelet Count 157 10^3/uL (140-450) Mean Platelet Volume 8.6 fL (6.9-10.8) Neutrophils (%) (Auto) 50.2 % (37.0-80.0) Lymphocytes (%) (Auto) 30.8 % (10.0-50.0) Monocytes (%) (Auto) 17.4 % (0.0-12.0) Eosinophils (%) (Auto) 0.8 % (0.0-7.0) Basophils (%) (Auto) 0.8 % (0.0-2.0) Neutrophils # (Auto) 1.6 10 ^3/uL (1.6-8.6) Lymphocytes # (Auto) 1.0 10 ^3/uL (0.4-5.4) Monocytes # (Auto) 0.6 10 ^3/uL (0-1.3) Eosinophils # (Auto) 0 10 ^3/uL (0-0.8) Basophils # (Auto) 0 10 ^3/uL (0-0.2) Nucleated Red Blood Cells 0.2 % Sodium Level 142 mmol/L (136-145) Potassium Level 4.0 mmol/L (3.5-5.1) Chloride Level 109 mmol/L (98-107) Carbon Dioxide Level 25 mmol/L (20-31) Anion Gap 8 (5-15) Blood Urea Nitrogen 8 mg/dL (9-23) Creatinine 0.48 mg/dL (0.550-1.02) Glomerular Filtration Rate Calc 104 mL/min (>90) BUN/Creatinine Ratio 16.7 (10.0-20.0) Serum Glucose 125 mg/dL (74-106) Hemoglobin A1c 7.9 % A1C (<5.7) Calcium Level 7.9 mg/dL (8.7-10.4) Total Bilirubin 0.3 mg/dL (0.2-1.0) Aspartate Amino Transferase (AST) 37 U/L (13-40) Alanine Aminotransferase (ALT) 31 U/L (7-40) Alkaline Phosphatase 47 U/L (46-116) Total Protein 5.8 g/dL (5.7-8.2) Albumin 3.4 g/dL (3.2-4.8) Urine Color Light-yellow (Yellow) Urine Clarity Clear (Clear) Urine pH 5.5 (5.0-9.0) Urine Specific [place] 1.033 (1.001-1.035) Urine Protein Negative (Negative) Urine Ketones Negative (Negative) Urine Blood Negative /uL (Negative) Urine Nitrite Negative (Negative) Urine Bilirubin Negative (Negative) Urine Urobilinogen Normal mg/dL (Negative) Urine Leukocyte Esterase Negative /uL (Negative) Urine RBC <1 /hpf (0 - 4) Urine Microscopic WBC 1 /HPF (0-5) Urine Squamous Epithelial Cells Few /hpf (<5) Urine Bacteria None seen /hpf (None Seen) Urine Glucose 4+ mg/dL (Normal) Test 08/30/25 06:26 08/30/25 04:40 Troponin I High Sensitivity 9 ng/L (</=34) Influenza Type A Antigen Negative (Negative) Influenza Type B Antigen Negative (Negative) SARS-CoV-2 Antigen (Rapid) Negative (NEGATIVE) Other Laboratory Tests 08/31/25 04:23 Brief Hx & Hospital Course: 65-year-old female with a known history of diabetes mellitus type 2, hypertension, dyslipidemia, chronic asthma, morbid obesity class I, who initially present with the hospital with a low back pain found to have lactic acidosis. Patient was ruled out for any sepsis by negative blood culture and urine analysis. Patient has had a incidental finding of lumbar spinal disc bulge at L4-5, L5-S1. MRI lumbar spine was done which shows degenerative disc disease without any significant stenosis. Patient's lactic acidosis was elevated secondary to metformin which has improved a, lactic acidosis has been improved. Patient's metformin dose was decreased to 500 mg twice a day. Patient was seen by spine surgery and cleared the patient to be discharged. Condition at Discharge: Stable Final Diagnosis/Problems List 1. Low back pain, no evidence of acute spinal issues, only chronic degenerative disc disease 2. Lactic acidosis suspected secondary to metformin no evidence of any sepsis 3. Diabetes mellitus type 2 4. Hypertension 5. Dyslipidemia Discharge Disposition: Home SNF Discharge Will this Physician continue t: No Discharge Instruct/Medications Diet: Cardiac 2g Na,low cholest Diet comment: 1800 ADA diet Activity: No Restrictions, As Tolerated Follow Up/Referral: Please follow up with the PCP in 1-2 weeks Follow up with spine surgery as an outpatient with a 1-2 weeks Medications: Resume home medication, cut down metformin to 500 mg p.o. twice a day Scheduled Acetaminophen (Acetaminophen), 500 MG PO Q4HPRN Atorvastatin Calcium (Atorvastatin Calcium), 20 MG PO HS, (Reported) Ertugliflozin l-Pyroglutamic A (Steglatro), 5 MG PO HS, (Reported) Glipizide (Glipizide), 1 TAB PO BID, (Reported) Guaifenesin-Codeine (Robitussin/Codeine), 5-10 ML PO Q4HR, (Reported) Losartan Potassium (Losartan Potassium), 1 TAB PO DAILY, (Reported) Metformin Hydrochloride (Metformin Hcl), 1,000 MG PO BID, (Reported) Sitagliptin Phosphate (Januvia), 1 TAB PO DAILY, (Reported) Scheduled PRN Albuterol Sulfate (Albuterol Sulfate Hfa), 108 MCG IN Q4HPRN PRN Albuterol Sulfate (Ventolin Mdi), 90 MCG IN Q4HP PRN Discontinued Medications Azithromycin (Zithromax Tablet), 250 MG PO DAILY Benzonatate (Tessalon Perles), 1 CAP PO TID Ertugliflozin l-Pyroglutamic A (Steglatro), 5 MG PO DAILY, (Reported) Glipizide (Glipizide), 5 MG PO TID, (Reported) Guaifenesin-Codeine (Robitussin/Codeine), 5-10 ML PO Q4HR, (Reported) Guaifenesin-Codeine (Robitussin/Codeine), 5 ML PO Q6HR, (Reported) Ondansetron Odt 4MG Tab (Zofran Po), 4 MG PO Q8HPRN Prednisone (Prednisone), 10 MG PO DAILY Sitagliptin Phosphate (Januvia), 1 TAB PO DAILY Sulfamethoxazole W/Trimethopri (Bactrim Ds Tablet), 1 TAB PO BID Discharge Statement: "Patient was advised to return to the ER or call 911 if any headaches, dizziness, shortness of breath, chest pain, abdominal pain, bleeding, fevers, or worsening of medical condition. Patient was counseled about treatment plan, medications, possible side effects, patientverbalized understanding. All questions were answered to the best of my ability. This discharge took greater then 30 minutes in planning, reviewing documentation, counseling the patient, and discussing with other team members." ASSESSMENT ASSESSMENT Assessment 1. Low back pain, no evidence of acute spinal issues, only chronic degenerative disc disease 2. Lactic acidosis suspected secondary to metformin no evidence of any sepsis 3. Diabetes mellitus type 2 4. Hypertension 5. Dyslipidemia Date of Service: Aug 31, 2025 Billing Provider: NICOLE PICKENS MD Common Visit Codes: 70866-[id number] DISCH DAY >30min NICOLE PICKENS MD Aug 31, 2025 14:19
== END 2025-08-31 16:20 | disposition home or self-care (01) | DRG 392 ==
LOC: ER 02:42 → OVERFLOW 07:39
PROVIDERS: ADMIT Internal Medicine; ATTEND Internal Medicine
DX: R10.A2 Flank pain, left side (principal); E87.20 Acidosis, unspecified; E11.65 Type 2 diabetes mellitus with hyperglycemia; E66.811 Obesity, class 1; I10 Essential (primary) hypertension; J45.909 Unspecified asthma, uncomplicated; M51.369 Other intervertebral disc degeneration, lumbar region without mention of lumbar back pain or lower extremity pain; E78.5 Hyperlipidemia, unspecified; Z20.822 Contact with and (suspected) exposure to COVID-19; Z68.28 Body mass index [BMI] 28.0-28.9, adult; M47.816 Spondylosis without myelopathy or radiculopathy, lumbar region; Z91.81 History of falling; Z79.84 Long term (current) use of oral hypoglycemic drugs; Z79.899 Other long term (current) drug therapy; Z90.49 Acquired absence of other specified parts of digestive tract; Z87.440 Personal history of urinary (tract) infections
CPT/HCPCS: 36415; 72148; 74176; 80048; 80053; 81001; 82962; 83036; 83605; 84484; 85025; 87040; 87086; 87426; 87804; 93005; 96372; G0378; J1100; J1815; J1885; J2405